=== PATIENT | female | born 1985 | race Caucasian/White ===

== ENCOUNTER 2016-10-17 07:42 | Emergency (ER) | payer MEDICARE, MEDICAID ==
[2016-10-17] MEDS: Sodium Chloride 0.9% 1,000 ML IV SCH ×3 (09:18→14:29)
--- NOTE | 2016-10-17 10:20 | EDM.PDOC ---
ED HPI GENERAL MEDICAL PROBLEM - General Chief Complaint: General Stated Complaint: lethargy Time Seen by Provider: 10/17/16 08:30 Source of Information: Reports: Patient, Family History Limitations: Reports: Altered mental status - History of Present Illness INITIAL COMMENTS - FREE TEXT/NARRATIVE: History of present illness: [31-year-old female presenting with altered mental status appear. Patient is positive for amphetamines, benzodiazepines, and marijuana. Patient has multiple prescriptions inclusive of tramadol for pain, effects or, and Seroquel. Patient does knowledge when questioned that in fact she was given some Reglan, some Valium, and some Clonopin from her friend. Patient also acknowledges she does go outside and smoke MJ in the car at the end of the day to take the edge off.] Review of systems: As per history of present illness and below otherwise all systems reviewed and negative. Past medical history: As per history of present illness and as reviewed below otherwise noncontributory. Surgical history: As per history of present illness and as reviewed below otherwise noncontributory. Social history: No reported history of drug or alcohol abuse. Family history: As per history of present illness and as reviewed below otherwise noncontributory. Physical exam: HEENT: Atraumatic, normocephalic, pupils reactive, negative for conjunctival pallor or scleral icterus, mucous membranes moist, throat clear, neck supple, nontender, trachea midline. Lungs: Clear to auscultation, breath sounds equal bilaterally, chest nontender. Heart: S1S2, regular, negative for clicks, rubs, or JVD. Abdomen: Soft, nondistended, nontender. Negative for masses or hepatosplenomegaly. Negative for costovertebral tenderness. Pelvis: Stable nontender. Genitourinary: Deferred. Rectal: Deferred. Extremities: Atraumatic, negative for cords or calf pain. Neurovascular unremarkable. Neuro: Lethargic but oriented. Cranial nerves II through XII unremarkable. Cerebellum unremarkable. Motor and sensory unremarkable throughout. Exam nonfocal. CPS called secondary to 3-week-old baby in the house. Father of child here with baby and taking appropriate care of child while in ER. CPS here to evaluate child and parents to determine status/placement. Renal profile noticed to be impacted secondary to dehydration and pyelonephritis. After rehydration patient noted to have repeat labs reflecting improvement on acute renal insufficiency. Diagnostics: [CBC, CMP, UA, urine drug screen, CT of the head] Therapeutics: [] Impression: [Positive drug screen/ amphetamine and benzo] Plan: [Multiple liters of fluid to rehydration] Definitive disposition and diagnosis as appropriate pending reevaluation and review of above. - Related Data Allergies Allergy/AdvReac Type Severity Reaction Status Date / Time ketorolac tromethamine Allergy Rash Verified 10/17/16 07:49 [From Toradol] Home Meds: Home Meds Gabapentin 1,200 mg PO TID 11/04/15 [History] Propranolol [Inderal LA] 10 mg PO TID 11/04/15 [History] QUEtiapine Fumarate [Seroquel] 200 mg PO BEDTIME 11/04/15 [History] Venlafaxine [Effexor] 150 mg PO DAILY 11/04/15 [History] traMADol [Ultram] 50 mg PO Q6H PRN 11/04/15 [History] Ciprofloxacin HCl [Cipro] 500 mg PO BID 10/17/16 [History] Past Medical History Cardiovascular History: Reports: Hypertension DEVELOPMENT REP History: Reports: , Other (see below) Other OB/BYN History: reports tubes are tied Musculoskeletal History: Reports: Arthritis, Back pain, chronic, Fracture Neurological History: Reports: Migraines Psychiatric History: Reports: Depression Endocrine/Metabolic History: Reports: Diabetes, gestational - Infectious Disease History Infectious Disease History: Reports: Hepatitis C - Past Surgical History GI Surgical History: Reports: Cholecystectomy Neurological Surgical History: Reports: Spinal fusion Social & Family History - Family History Family Medical History: Noncontributory - Tobacco Use Smoking Status *Q: Current Every Day Smoker Years of Tobacco use: 10 Packs/Tins Daily: 0.5 Month Tobacco Last Used: 2 months - Caffeine Use Caffeine Use: Reports: None - Recreational Drug Use Recreational Drug Use: No ED ROS GENERAL - Review of Systems Review Of Systems: See Below (See history of present illness) ED EXAM, GENERAL - Physical Exam Exam: See Below (See history of present illness) Course - Vital Signs Last Recorded V/S: Last Vital Signs Temp 36.8 C 10/17/16 15:15 Pulse 91 10/17/16 15:15 Resp 18 10/17/16 15:15 BP 114/64 10/17/16 15:15 Pulse Ox 95 10/17/16 15:15 - Orders/Labs/Meds Orders: Active Orders 24 hr Category Date Time Status Cardiac Monitoring [RC] . DIRECTED Care 10/17/16 09:21 Active Head wo Cont [CT] Stat Exams 10/17/16 09:39 Taken Lactated Ringers [Ringers, Lactated] 1,000 ml Med 10/17/16 14:45 Active IV .BOLUS Sodium Chloride 0.9% [Normal Saline] 1,000 ml Med 10/17/16 09:15 Active IV .BOLUS Medication Orders Sodium Chloride (Normal Saline) 1,000 mls @ 999 mls/hr IV .BOLUS PRABHAKAR Last Admin: 10/17/16 14:29 Dose: 999 mls/hr Infusion: 10/17/16 11:19 Dose: 999 mls/hr Admin: 10/17/16 10:18 Dose: 999 mls/hr Infusion: 10/17/16 10:18 Dose: 999 mls/hr Admin: 10/17/16 09:18 Dose: 999 mls/hr Lactated Ringer's (Ringers, Lactated) 1,000 mls @ 999 mls/hr IV .BOLUS ONE Stop: 10/17/16 15:45 Last Admin: 10/17/16 15:18 Dose: 999 mls/hr Labs: Laboratory Tests 10/17/16 10/17/16 10/17/16 Range/Units 07:58 07:58 07:58 WBC (5.0-10.0) 10^3/uL RBC (4.00-5.50) 10^6/uL Hgb (12.0-16.0) g/dL Hct (37.0-47.0) % MCV (82.0-94.0) fL MCH (27.0-32.0) pg MCHC (33.0-38.0) g/dL RDW Coeff of Dian (11.0-15.0) % Plt Count (150-400) 10^3/uL Neut % (Auto) (35-85) % Lymph % (Auto) (10-55) % [place] % (Auto) (0-16) % Eos % (Auto) (0-5) % Baso % (Auto) (0-3) % Neut # (1.80-7.00) 10^3/uL Lymph # (1.00-4.80) 10^3/uL [place] # (0.00-0.80) 10^3/uL Eos # (0.00-0.45) 10^3/uL Baso # 10^3/uL Sodium 141 (136-145) mEq/L Potassium 4.3 D (3.5-5.0) mEq/L Chloride 105 (98-106) mEq/L Carbon Dioxide 25 (21-32) mmol/L BUN 30 H D (7-18) mg/dL Creatinine 1.7 H D (0.6-1.0) mg/dL Est Cr Clr Drug Dosing 54.83 mL/min Estimated GFR (MDRD) 35 L (>=60) mL/min Glucose 98 (75-99) mg/dL Calcium 8.7 (8.4-10.1) mg/dL Total Bilirubin 0.5 (0.0-1.0) mg/dL AST 43 H (15-37) U/L ALT 104 H (12-78) U/L Alkaline Phosphatase 71 (46-116) U/L Total Protein 7.2 (6.4-8.2) g/dL Albumin 2.9 L (3.4-5.0) g/dL Urine Color Yellow (YELLOW) Urine Appearance Clear (CLEAR) Urine pH 5.0 (4.5-8.0) Ur Specific [place] 1.014 (1.003-1.020) Urine Protein 100 H (NEGATIVE) mg/dL Urine Glucose (UA) Negative (NEGATIVE) mg/dL Urine Ketones Negative (NEGATIVE) mg/dL Urine Occult Blood Moderate H (NEGATIVE) Urine Nitrite Negative (NEGATIVE) Urine Bilirubin Negative (NEGATIVE) Urine Urobilinogen 0.2 (0.2-1.0) EU/dL Ur Leukocyte Esterase Moderate H (NEGATIVE) Urine RBC 5-10 H (0-5) /HPF Urine WBC 50-75 H (0-5) /HPF Ur Squamous Epith Cells Few H (NOT SEEN) /HPF Urine Bacteria Moderate H (NOT SEEN) /HPF Hyaline Casts Few H (NOT SEEN) /LPF Urine Opiates Screen Negative (NEGATIVE) Ur Oxycodone Screen Negative (NEGATIVE) Urine Methadone Screen Negative (NEGATIVE) Ur Barbiturates Screen Negative (NEGATIVE) U Tricyclic Antidepress Positive H (NEGATIVE) Ur Phencyclidine Scrn Negative (NEGATIVE) Ur Amphetamine Screen Positive H (NEGATIVE) U Methamphetamines Scrn Negative (NEGATIVE) Urine MDMA Screen Negative (NEGATIVE) U Benzodiazepines Scrn Positive H (NEGATIVE) Urine Cocaine Screen Negative (NEGATIVE) U Marijuana (THC) Screen Positive H (NEGATIVE) 10/17/16 10/17/16 Range/Units 08:35 14:35 WBC 6.3 (5.0-10.0) 10^3/uL RBC 3.60 L (4.00-5.50) 10^6/uL Hgb 10.2 L (12.0-16.0) g/dL Hct 33.0 L (37.0-47.0) % MCV 91.7 (82.0-94.0) fL MCH 28.3 (27.0-32.0) pg MCHC 30.9 L (33.0-38.0) g/dL RDW Coeff of Dian 14.5 (11.0-15.0) % Plt Count 217 (150-400) 10^3/uL Neut % (Auto) 77.1 (35-85) % Lymph % (Auto) 14.5 (10-55) % [place] % (Auto) 6.4 (0-16) % Eos % (Auto) 1.8 (0-5) % Baso % (Auto) 0.2 (0-3) % Neut # 4.84 (1.80-7.00) 10^3/uL Lymph # 0.91 L (1.00-4.80) 10^3/uL [place] # 0.40 (0.00-0.80) 10^3/uL Eos # 0.11 (0.00-0.45) 10^3/uL Baso # 0.01 10^3/uL Sodium (136-145) mEq/L Potassium (3.5-5.0) mEq/L Chloride (98-106) mEq/L Carbon Dioxide (21-32) mmol/L BUN 20 H (7-18) mg/dL Creatinine 1.0 (0.6-1.0) mg/dL Est Cr Clr Drug Dosing 93.20 mL/min Estimated GFR (MDRD) > 60 (>=60) mL/min Glucose (75-99) mg/dL Calcium (8.4-10.1) mg/dL Total Bilirubin (0.0-1.0) mg/dL AST (15-37) U/L ALT (12-78) U/L Alkaline Phosphatase (46-116) U/L Total Protein (6.4-8.2) g/dL Albumin (3.4-5.0) g/dL Urine Color (YELLOW) Urine Appearance (CLEAR) Urine pH (4.5-8.0) Ur Specific [place] (1.003-1.020) Urine Protein (NEGATIVE) mg/dL Urine Glucose (UA) (NEGATIVE) mg/dL Urine Ketones (NEGATIVE) mg/dL Urine Occult Blood (NEGATIVE) Urine Nitrite (NEGATIVE) Urine Bilirubin (NEGATIVE) Urine Urobilinogen (0.2-1.0) EU/dL Ur Leukocyte Esterase (NEGATIVE) Urine RBC (0-5) /HPF Urine WBC (0-5) /HPF Ur Squamous Epith Cells (NOT SEEN) /HPF Urine Bacteria (NOT SEEN) /HPF Hyaline Casts (NOT SEEN) /LPF Urine Opiates Screen (NEGATIVE) Ur Oxycodone Screen (NEGATIVE) Urine Methadone Screen (NEGATIVE) Ur Barbiturates Screen (NEGATIVE) U Tricyclic Antidepress (NEGATIVE) Ur Phencyclidine Scrn (NEGATIVE) Ur Amphetamine Screen (NEGATIVE) U Methamphetamines Scrn (NEGATIVE) Urine MDMA Screen (NEGATIVE) U Benzodiazepines Scrn (NEGATIVE) Urine Cocaine Screen (NEGATIVE) U Marijuana (THC) Screen (NEGATIVE) Meds: Medications Generic Name Dose Route Start Last Admin Trade Name Freq PRN Reason Stop Dose Admin Sodium Chloride 1,000 mls @ 999 mls/hr 10/17/16 09:15 10/17/16 14:29 Normal Saline IV 999 mls/hr .BOLUS PRABHAKAR Administration Lactated Ringer's 1,000 mls @ 999 mls/hr 10/17/16 14:45 10/17/16 15:18 Ringers, Lactated IV 10/17/16 15:45 999 mls/hr .BOLUS ONE Administration Discontinued Medications Generic Name Dose Route Start Last Admin Trade Name Freq PRN Reason Stop Dose Admin Lactated Ringer's 1,000 mls @ 999 mls/hr 10/17/16 10:46 10/17/16 11:28 Ringers, Lactated IV 10/17/16 11:46 999 mls/hr .BOLUS ONE Administration Lactated Ringer's 1,000 mls @ 999 mls/hr 10/17/16 12:32 10/17/16 12:36 Ringers, Lactated IV 10/17/16 13:32 999 mls/hr .BOLUS ONE Administration Departure - Departure Time of Disposition: 15:24 Disposition: Home, Self-Care 01 Condition: good Clinical Impression: Altered mental status, unspecified Qualifiers: Altered mental status type: stupor Qualified Code(s): R40.1 - Stupor Forms: ED Department Discharge Additional Instructions: The following information is given to patients seen in the emergency department who are being discharged to home. This information is to outline your options for follow-up care. We provide all patients seen in our emergency department with a follow-up referral. The need for follow-up, as well as the timing and circumstances, are variable depending upon the specifics of your emergency department visit. If you don't have a primary care physician on staff, we will provide you with a referral. We always advise you to contact your personal physician following an emergency department visit to inform them of the circumstance of the visit and for follow-up with them and/or the need for any referrals to a consulting specialist. The emergency department will also refer you to a specialist when appropriate. This referral assures that you have the opportunity for follow-up care with a specialist. All of these measure are taken in an effort to provide you with optimal care, which includes your follow-up. Under all circumstances we always encourage you to contact your private physician who remains a resource for coordinating your care. When calling for follow-up care, please make the office aware that this follow-up is from your recent emergency room visit. If for any reason you are refused follow-up, please contact the [facility] Emergency Department at and asked to speak to the emergency department charge nurse. Followup with primary care provider in one to 2 days Finish your antibiotics as directed Quit taking drugs return ED as needed as this got - My Orders Last 24 Hours: My Active Orders 10/17/16 09:15 Sodium Chloride 0.9% [Normal Saline] 1,000 ml IV .BOLUS 10/17/16 09:21 Cardiac Monitoring [RC] . DIRECTED 10/17/16 09:39 Head wo Cont [CT] Stat 10/17/16 14:45 Lactated Ringers [Ringers, Lactated] 1,000 ml IV .BOLUS - Assessment/Plan Last 24 Hours: My Active Orders 10/17/16 09:15 Sodium Chloride 0.9% [Normal Saline] 1,000 ml IV .BOLUS 10/17/16 09:21 Cardiac Monitoring [RC] . DIRECTED 10/17/16 09:39 Head wo Cont [CT] Stat 10/17/16 14:45 Lactated Ringers [Ringers, Lactated] 1,000 ml IV .BOLUS
[2016-10-17] MEDS ORDERED: Lactated Ringers 1,000 ML IV ONE ×3 (10:46→14:45)
[2016-10-17 15:15] VITALS: BP 114/64
== END 2016-10-17 17:00 | disposition home or self-care (01) ==
LOC: CC.ED 07:42
DX: R40.1 Stupor (principal); M19.90 Unspecified osteoarthritis, unspecified site; F17.210 Nicotine dependence, cigarettes, uncomplicated; Z88.5 Allergy status to narcotic agent; Z79.899 Other long term (current) drug therapy
CPT/HCPCS: 36415; 70450; 80053; 80305; 81001; 82565; 84520; 85025; 96360; 96361; 99285; J7030; J7120

== ENCOUNTER 2017-08-05 17:04 | Emergency (ER) | payer MEDICARE, MEDICAID ==
[2017-08-05 17:16] VITALS: BP 106/84
--- NOTE | 2017-08-05 17:55 | EDM.PDOC ---
ED HPI GENERAL MEDICAL PROBLEM - General Chief Complaint: Chest Pain Stated Complaint: CHEST PAINS FOR A MONTH Time Seen by Provider: 08/05/17 17:35 Source of Information: Reports: Patient History Limitations: Reports: No Limitations - History of Present Illness INITIAL COMMENTS - FREE TEXT/NARRATIVE: johnny is a 32 yo female who presents to the ER with complaints of chest tightness for the last month or so. States it initially started where she would get it once or twice a day and has gradually gotten worse. Admits now she will get the tightness and feels panicky at [place] 4X a day for the last couple of weeks. She states she has a history of depression and anxiety and usually sees Dr. Chavez in [place]. She admits she has cancelled two appointments d/t her current symptoms as she thought it would gradually get better. States she has a lot going on at home right now and is under a lot of stress to. She takes Seroquel and Effexor for her depression. She states she would like to make sure everything is okay and hopefully this will give her some relief. Denies any pain presently and states it will come on at any given time. Chest tightness is always on the left and into her left shoulder. Also feels some tingling in her fingers. Onset: Gradual Location: Reports: Chest Improves with: Reports: Other (calming down) Worsens with: Reports: Other (stress, anxiety) Associated Symptoms: Reports: No Other Symptoms Anterior Chest Pain Score (Numeric/FACES): 4 - Related Data Allergies Allergy/AdvReac Type Severity Reaction Status Date / Time ketorolac tromethamine Allergy Rash Verified 10/17/16 07:49 [From Toradol] Home Meds: Home Meds Gabapentin 1,200 mg PO TID 11/04/15 [History] QUEtiapine Fumarate [Seroquel] 200 mg PO BEDTIME 11/04/15 [History] Venlafaxine [Effexor] 150 mg PO DAILY 11/04/15 [History] Past Medical History HEENT History: Reports: Impaired Vision Cardiovascular History: Reports: Hypertension Gastrointestinal History: Reports: Hepatitis [employer]ED [employer] History: Reports: , Other (See Below) Other OB/BYN History: reports tubes are tied Musculoskeletal History: Reports: Arthritis, Back Pain, Chronic, Fracture Neurological History: Reports: Migraines Psychiatric History: Reports: Depression Endocrine/Metabolic History: Reports: Diabetes, Gestational - Infectious Disease History Infectious Disease History: Reports: Hepatitis C - Past Surgical History GI Surgical History: Reports: Cholecystectomy Neurological Surgical History: Reports: Spinal Fusion Social & Family History - Family History Family Medical History: Noncontributory - Tobacco Use Smoking Status *Q: Current Every Day Smoker Years of Tobacco use: 12 Packs/Tins Daily: 0.5 Month Tobacco Last Used: 2 months - Caffeine Use Caffeine Use: Reports: None - Recreational Drug Use Recreational Drug Use: No ED ROS GENERAL - Review of Systems Review Of Systems: See Below Constitutional: Reports: No Symptoms HEENT: Reports: No Symptoms Respiratory: Reports: No Symptoms Cardiovascular: Reports: Chest Pain, Palpitations GI/Abdominal: Reports: No Symptoms : Reports: No Symptoms Skin: Reports: No Symptoms Psychiatric: Reports: Anxiety, Depression ED EXAM, GENERAL - Physical Exam Exam: See Below Exam Limited By: No Limitations General Appearance: Alert, No Apparent Distress, Other (appears calm, sitting comfortably on examination bed) Eye Exam: Bilateral Eye: Normal Inspection Ears: Normal External Exam, Normal Canal, Hearing Grossly Normal, Normal TMs Nose: Normal Inspection, No Blood Throat/Mouth: Normal Inspection, Normal Teeth, Normal Gums, Normal Oropharynx, Normal Voice, No Airway Compromise Head: Atraumatic, Normocephalic Neck: Normal Inspection, Supple, Non-Tender Respiratory/Chest: No Respiratory Distress, Lungs Clear, Normal Breath Sounds, No Accessory Muscle Use Cardiovascular: Normal Peripheral Pulses, Regular Rate, Rhythm, No Edema, No Murmur Extremities: Normal Inspection, Normal Capillary Refill Neurological: Alert, Oriented, Normal Cognition, No Motor/Sensory Deficits Psychiatric: Normal Affect, Normal Mood Skin Exam: Warm, Dry, Intact, Normal Color, No Rash EKG INTERPRETATION EKG Date: 08/05/17 Rhythm: NSR Course - Vital Signs Last Recorded V/S: Last Vital Signs Temp 97.2 F 08/05/17 17:32 Pulse 99 08/05/17 17:32 Resp 20 08/05/17 17:32 BP 106/84 08/05/17 17:32 Pulse Ox 99 08/05/17 17:32 - Orders/Labs/Meds Orders: Active Orders 24 hr Category Date Time Status Chest 2V [CR] Stat Exams 12/27/17 17:23 Taken LORazepam [Take Home: LORazepam 0.5 MG, 2 Tab Pack] Med 08/05/17 18:01 Once 2 packet PO ONETIME ONE Medication Orders Lorazepam (Take Home: Lorazepam 0.5 Mg, 2 Tab Pack) 2 packet PO ONETIME ONE Stop: 08/05/17 18:02 Labs: Laboratory Tests 08/05/17 08/05/17 08/05/17 Range/Units 17:34 17:34 17:34 WBC 6.4 (5.0-10.0) 10^3/uL RBC 4.22 (4.00-5.50) 10^6/uL Hgb 12.6 (12.0-16.0) g/dL Hct 37.5 (37.0-47.0) % MCV 88.9 (82.0-94.0) fL MCH 29.9 (27.0-32.0) pg MCHC 33.6 (33.0-38.0) g/dL RDW Coeff of Dian 12.2 (11.0-15.0) % Plt Count 361 (150-400) 10^3/uL Neut % (Auto) 57.5 (35-85) % Lymph % (Auto) 32.2 (10-55) % [place] % (Auto) 7.8 (0-16) % Eos % (Auto) 2.0 (0-5) % Baso % (Auto) 0.5 (0-3) % Neut # (Auto) 3.69 (1.80-7.00) 10^3/uL Lymph # (Auto) 2.07 (1.00-4.80) 10^3/uL [place] # (Auto) 0.50 (0.00-0.80) 10^3/uL Eos # (Auto) 0.13 (0.00-0.45) 10^3/uL Baso # (Auto) 0.03 10^3/uL PT 9.9 (9.7-12.3) SEC INR 0.92 (0.92-1.18) APTT 24.5 (20.0-45.0) SEC Sodium 140 (136-145) mEq/L Potassium 4.4 (3.5-5.0) mEq/L Chloride 105 (98-106) mEq/L Carbon Dioxide 26 (21-32) mmol/L BUN 9 D (7-18) mg/dL Creatinine 0.7 (0.6-1.0) mg/dL Est Cr Clr Drug Dosing 127.76 mL/min Estimated GFR (MDRD) > 60 (>=60) mL/min Glucose 92 (75-99) mg/dL Calcium 8.4 (8.4-10.1) mg/dL Lactate Dehydrogenase 209 H (100-190) U/L Creatine Kinase 71 (21-215) U/L Troponin I < 0.017 (0.00-0.06) ng/mL Meds: Medications Generic Name Dose Route Start Last Admin Trade Name Nando PRN Reason Stop Dose Admin Lorazepam 2 packet 08/05/17 18:01 Take Home: Lorazepam 0.5 Mg, 2 Tab Pack PO 08/05/17 18:02 ONETIME ONE Departure - Departure Time of Disposition: 18:04 Disposition: Home, Self-Care 01 Condition: Good Clinical Impression: Anxiety attack Instructions: Panic Attacks, [id number], Nonspecific Chest Pain, [id number] Forms: ED Department Discharge Additional Instructions: 1) Schedule appointment with primary provider tomorrow. 2) Advise smoking cessation, which can cause worsening of current symptoms 3) Encourage counseling as well, recommend getting referral from primary provider 4) Try to relax, work on breathing technique. 5) Refrain from any alcohol use or stimulants. 6) Ativan 0.5mg - 4 tablets in total given and may only take 1 tablet a day as needed for panic attack. Advise refraining from driving during this time as well. Further medications need to be discussed with your primary 7) If symptoms worsen or any concerns, return to ER. - Problem List & Annotations (1) Anxiety attack SNOMED Code(s): 923765384 Code(s): F41.0 - PANIC DISORDER [EPISODIC PAROXYSMAL ANXIETY] Status: Acute - Problem List Review Problem List Initiated/Reviewed/Updated: Yes - My Orders Last 24 Hours: My Active Orders 08/05/17 17:23 Chest 2V [CR] Stat 08/05/17 18:01 LORazepam [Take Home: LORazepam 0.5 MG, 2 Tab Pack] 2 packet PO ONETIME ONE - Assessment/Plan Last 24 Hours: My Active Orders 08/05/17 17:23 Chest 2V [CR] Stat 08/05/17 18:01 LORazepam [Take Home: LORazepam 0.5 MG, 2 Tab Pack] 2 packet PO ONETIME ONE Plan: See additional instructions. Labs, EKG and chest x-ray showed no acute or concerning findings.
[2017-08-05 17:56] LABS: CHLORIDE,CL 105 mEq/L (98-106); SODIUM,NA 140 mEq/L (136-145)
[2017-08-05] MEDS ORDERED: Take Home: LORazepam 0.5 MG Tab, 2 Tab Pack PO ONE (18:01)
== END 2017-08-05 18:16 | disposition home or self-care (01) ==
LOC: CC.ED 17:04
DX: F41.9 Anxiety disorder, unspecified (principal); F17.210 Nicotine dependence, cigarettes, uncomplicated; F32.9 Major depressive disorder, single episode, unspecified; Z88.8 Allergy status to other drugs, medicaments and biological substances
CPT/HCPCS: 36415; 71020; 80048; 82550; 83615; 84484; 85025; 85610; 85730; 93005; 99285; A9270; 93010; 99284

== ENCOUNTER 2017-12-01 19:08 | Emergency (ER) | payer MEDICARE, MEDICAID ==
[2017-12-01 19:18] VITALS: BP 131/94
[2017-12-01] MEDS ORDERED: Naproxen 500 MG Tab PO ONE (19:36)
--- NOTE | 2017-12-01 19:54 | EDM.PDOC ---
ED HPI GENERAL MEDICAL PROBLEM - General Chief Complaint: Lower Extremity Injury/Pain Stated Complaint: right foot/ankle pain Time Seen by Provider: 12/01/17 19:30 - History of Present Illness INITIAL COMMENTS - FREE TEXT/NARRATIVE: Arabella is a 32 year old female who presents to the ED with c/o right ankle/foot pain. She reports she was walking earlier today, not paying attention, when she rolled her ankle off the curb of the sidewalk. She reports instant pain and has now noticed some swelling to the top portion of her foot. She rates the pain an 8/10. 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 She is able to walk on ankle, with pain. She is able to move ankle and wiggle toes. She reports she has tried taking Tylenol and Excedrin migraine, but has not had relief of pain. Onset: Today, Sudden Duration: Constant Location: Reports: Lower Extremity, Right Quality: Reports: Ache, Throbbing Severity: Severe Improves with: Reports: Medication Worsens with: Reports: Movement Context: Reports: Activity Associated Symptoms: Reports: No Other Symptoms. Denies: Confusion, Chest Pain , Cough, cough w sputum, Diaphoresis, Fever/Chills, Headaches, Loss of Appetite , Malaise, Nausea/Vomiting, Rash, Seizure, Shortness of Breath, Syncope, Weakness Treatments PROMOTIONS EXECUTIVE: Reports: Acetaminophen, Other Medication(s) (Excedrin) Right Ankle Pain Score (Numeric/FACES): 8 - Related Data Allergies Allergy/AdvReac Type Severity Reaction Status Date / Time ketorolac tromethamine Allergy Rash Verified 12/01/17 19:10 [From Toradol] Home Meds: Home Meds Gabapentin 1,200 mg PO TID 11/04/15 [History] QUEtiapine Fumarate [Seroquel] 300 mg PO BEDTIME 11/04/15 [History] Venlafaxine [Effexor] 150 mg PO DAILY 11/04/15 [History] Past Medical History HEENT History: Reports: Impaired Vision Cardiovascular History: Reports: Hypertension Gastrointestinal History: Reports: Hepatitis TACKER OFF History: Reports: , Other (See Below) Other OB/BYN History: reports tubes are tied Musculoskeletal History: Reports: Arthritis, Back Pain, Chronic, Fracture Neurological History: Reports: Migraines Psychiatric History: Reports: Depression Endocrine/Metabolic History: Reports: Diabetes, Gestational - Infectious Disease History Infectious Disease History: Reports: Hepatitis C - Past Surgical History GI Surgical History: Reports: Cholecystectomy Neurological Surgical History: Reports: Spinal Fusion Social & Family History - Family History Family Medical History: Noncontributory - Tobacco Use Smoking Status *Q: Current Every Day Smoker Years of Tobacco use: 15 Packs/Tins Daily: 0.5 Month/Year Tobacco Last Used: 2 months - Caffeine Use Caffeine Use: Reports: None - Recreational Drug Use Recreational Drug Use: No Review of Systems - Review of Systems Review Of Systems: ROS reveals no pertinent complaints other than HPI. ED EXAM, GENERAL - Physical Exam Exam: See Below Exam Limited By: No Limitations General Appearance: Alert, WD/WN, No Apparent Distress Peripheral Pulses: 2+: Posterior Tibial (R), Dorsalis Pedis (R) Extremities: Normal Capillary Refill, Limited Range of Motion (right ankle), Other (tenderness over top of foot, trace swelling to anterior foot). No: Increased Warmth, Redness Skin Exam: Warm, Dry, Intact, Normal Color, No Rash Course - Vital Signs Last Recorded V/S: Last Vital Signs Temp 98.7 F 12/01/17 19:10 Pulse 87 12/01/17 19:10 Resp 20 12/01/17 19:10 BP 131/94 H 12/01/17 19:10 Pulse Ox 98 12/01/17 19:10 - Orders/Labs/Meds Orders: Active Orders 24 hr Category Date Time Status Ankle Min 3V Rt [CR] Stat Exams 12/01/17 19:10 Taken Foot 2V Rt [CR] Stat Exams 12/01/17 19:10 Taken Meds: Medications Discontinued Medications Generic Name Dose Route Start Last Admin Trade Name Freq PRN Reason Stop Dose Admin Naproxen 500 mg 12/01/17 19:36 12/01/17 19:44 Naprosyn PO 12/01/17 19:37 500 mg ONETIME ONE Administration Naproxen 2 packet 12/01/17 21:01 12/01/17 21:10 Take Home: Naproxen 500 Mg, 4 Tab Pack PO 12/01/17 21:02 2 packet ONETIME ONE Administration - Re-Assessments/Exams Free Text/Narrative Re-Assessment/Exam: 12/01/17 20:59 Xrays normal per radiology report. Departure - Departure Time of Disposition: 20:59 Disposition: Home, Self-Care 01 Condition: Good Clinical Impression: Right ankle sprain Qualifiers: Encounter type: initial encounter Involved ligament of ankle: unspecified ligament Qualified Code(s): S93.401A - Sprain of unspecified ligament of right ankle, initial encounter - Discharge Information Instructions: Ankle Sprain, [id number] Referrals: PCP,None [Primary Care Provider] - Forms: ED Department Discharge Additional Instructions: Rest affected foot/ankle until pain improves Ice right ankle for 20 minutes at a time Ronny wrap applied. Wear as needed for comfort Elevate extremity as much as possible Naproxen every 8 hours as needed for pain Follow up with PCP if symptoms worsen or do not improve in 7 days - My Orders Last 24 Hours: My Active Orders 12/01/17 19:10 Ankle Min 3V Rt [CR] Stat Foot 2V Rt [CR] Stat - Assessment/Plan Last 24 Hours: My Active Orders 12/01/17 19:10 Ankle Min 3V Rt [CR] Stat Foot 2V Rt [CR] Stat
[2017-12-01] MEDS ORDERED: Take Home: Naproxen 500 MG Tab, 4 Tab Pack PO ONE (21:01)
== END 2017-12-01 21:14 | disposition home or self-care (01) ==
LOC: CC.ED 19:08
DX: S93.401A Sprain of unspecified ligament of right ankle, initial encounter (principal); I10 Essential (primary) hypertension; F17.210 Nicotine dependence, cigarettes, uncomplicated; Z88.6 Allergy status to analgesic agent; Z79.899 Other long term (current) drug therapy; X50.9XXA Other and unspecified overexertion or strenuous movements or postures, initial encounter; Y93.01 Activity, walking, marching and hiking
CPT/HCPCS: 73610; 73620; 99283; A9270

== ENCOUNTER 2018-07-20 21:10 | Emergency (ER) | payer MEDICARE, MEDICAID ==
[2018-07-20 22:12] LABS: CHLORIDE,CL 102 mEq/L (98-106); SODIUM,NA 138 mEq/L (136-145)
[2018-07-20 22:34] VITALS: BP 126/91
[2018-07-20] MEDS ORDERED: Potassium Chloride 10 MEQ Tab.ER PO ONE (22:41)
--- NOTE | 2018-07-20 22:49 | EDM.PDOC ---
ED HPI GENERAL MEDICAL PROBLEM - General Chief Complaint: Neuro Symptoms/Deficits Stated Complaint: dizzy, lightheaded Time Seen by Provider: 07/20/18 21:42 Source of Information: Reports: Patient History Limitations: Reports: No Limitations - History of Present Illness INITIAL COMMENTS - FREE TEXT/NARRATIVE: Arabella is a 33 yo female who presents to the ED via [facility] with complaints of lightheadedness. She states she has felt dizzy the last few days and tonight it seemed to get worse. Admits she felt as if she was going to pass out. She states her blood pressure has been quite high lately with the bottom number being around the 100 up to 117 range. She admits she has been getting a lot of headaches, especially in the morning. She states she has been dealing with a lot of stress lately and feels her anxiety has been worse as well from it. She denies any chest pain or palpitations in her chest. States she hasn't had any upper respiratory symptoms either. Admits she is just getting over her period and was abnormal this month as she only had it for a few days and was a lot juvenile justice officer than it typically is. states she felt similar to this about a year ago when she had a retained tampon. She admits she doesn't use a tampon very often so will sometimes forget about it. Last time it happened she admits just under a month she was having a bowel movement and could tell there was one there and pulled it out herself. She would like to make sure no tampon is present. She denies any foul odors. Did notice with last intercourse some mild discomfort. Denies any urinary symptoms. States when she arrived at the ED it seems as if her symptoms completely resolved. She denies any lightheadedness currently. Uterine Pain Score (Numeric/FACES): 3 - Related Data Allergies Allergy/AdvReac Type Severity Reaction Status Date / Time ketorolac tromethamine Allergy Rash Verified 07/20/18 21:16 [From Toradol] Home Meds: Home Meds Gabapentin 1,200 mg PO TID 11/04/15 [History] QUEtiapine Fumarate [Seroquel] 300 mg PO BEDTIME 11/04/15 [History] Venlafaxine [Effexor] 225 mg PO DAILY 11/04/15 [History] HYDROcodone/Ibuprofen [Hydrocodone-Ibuprofen 7.5-200] 2 tab PO QID PRN 07/20/18 [History] Past Medical History HEENT History: Reports: Impaired Vision Cardiovascular History: Reports: Hypertension Gastrointestinal History: Reports: GERD, Hepatitis Genitourinary History: Reports: Pyelonephritis DIRECTOR OF RELIGIOUS LIFE History: Reports: , Other (See Below) Other DIRECTOR OF RELIGIOUS LIFE History: reports tubes are tied Musculoskeletal History: Reports: Arthritis, Back Pain, Chronic, Fracture, Fibromyalgia Neurological History: Reports: Migraines Psychiatric History: Reports: Anxiety, Depression Endocrine/Metabolic History: Reports: Diabetes, Gestational - Infectious Disease History Infectious Disease History: Reports: Hepatitis C - Past Surgical History HEENT Surgical History: Reports: None Cardiovascular Surgical History: Reports: None GI Surgical History: Reports: Cholecystectomy Female Surgical History: Reports: None Endocrine Surgical History: Reports: None Neurological Surgical History: Reports: Spinal Fusion Musculoskeletal Surgical History: Reports: None Dermatological Surgical History: Reports: None Social & Family History - Family History Family Medical History: Noncontributory - Tobacco Use Smoking Status *Q: Current Every Day Smoker Years of Tobacco use: 12 Packs/Tins Daily: 0.5 - Caffeine Use Caffeine Use: Reports: Soda - Recreational Drug Use Recreational Drug Use: No ED ROS GENERAL - Review of Systems Review Of Systems: ROS reveals no pertinent complaints other than HPI. Constitutional: Reports: No Symptoms HEENT: Reports: No Symptoms Respiratory: Denies: Shortness of Breath, Wheezing Cardiovascular: Reports: Blood Pressure Problem, Lightheadedness. Denies: Chest Pain, Palpitations GI/Abdominal: Denies: Abdominal Pain, Bloody Stool, Constipation, Diarrhea, Nausea, Vomiting : Reports: Irregular Menses. Denies: Discharge, Dysuria, Hematuria, Pain, Urgency Musculoskeletal: Reports: No Symptoms Skin: Reports: No Symptoms Neurological: Reports: Dizziness, Headache Psychiatric: Reports: Anxiety, Depression ED EXAM, NEURO - Physical Exam Exam: See Below Exam Limited By: No Limitations General Appearance: Alert, WD/WN, No Apparent Distress Eye Exam: Bilateral Eye: EOMI, Normal Inspection, PERRL Ears: Normal External Exam, Normal Canal, Hearing Grossly Normal, Normal TMs Nose: Normal Inspection, Normal Mucosa, No Blood Throat/Mouth: Normal Inspection, Normal Lips, Normal Teeth, Normal Gums, Normal Oropharynx, Normal Voice, No Airway Compromise Head Exam: Atraumatic, Normocephalic Neck: Normal Inspection, Supple Respiratory/Chest: No Respiratory Distress, Lungs Clear, Normal Breath Sounds, No Accessory Muscle Use Cardiovascular: Normal Peripheral Pulses, Regular Rate, Rhythm, No Edema, No Murmur GI/Abdominal: Normal Bowel Sounds, Soft, No Organomegaly, No Distention, Tender (mild suprapubic tenderness) (Female) Exam: Normal Speculum Exam. No: Cervical Discharge, Cervical Lesions, Cervix Motion Tenderness, Vaginal Bleeding, Vaginal Discharge, Vaginal Lesions Neurological: Alert, Normal Mood/Affect, CN II-XII Intact, Normal Gait, No Motor /Sensory Deficits, Oriented x 3 Extremities: Normal Inspection Psychiatric: Normal Affect, Normal Mood Skin Exam: Warm, Dry, Intact, Normal Color, No Rash EKG INTERPRETATION EKG Date: 07/20/18 Rhythm: NSR Roland: Normal P-Wave: Present QRS: Normal ST-T: Normal QT: Prolonged Comparison: NA - No Prior EKG Course - Vital Signs Last Recorded V/S: Last Vital Signs Temp 96.7 F 07/20/18 21:34 Pulse 79 07/20/18 21:34 Resp 16 07/20/18 21:34 BP 126/91 H 07/20/18 22:33 Pulse Ox 99 07/20/18 21:34 Orthostatic Blood Pressure [ 113/71 Standing] Orthostatic Blood Pressure [ 120/86 Sitting] Orthostatic Blood Pressure [ 119/85 Supine] - Orders/Labs/Meds Orders: Active Orders 24 hr Category Date Time Status EKG Documentation Completion [RC] STAT Care 07/20/18 22:11 Active Labs: Laboratory Tests 07/20/18 07/20/18 07/20/18 Range/Units 21:24 21:24 21:24 WBC 5.8 (5.0-10.0) 10^3/uL RBC 3.97 L (4.00-5.50) 10^6/uL Hgb 11.6 L (12.0-16.0) g/dL Hct 35.0 L (37.0-47.0) % MCV 88.2 (82.0-94.0) fL MCH 29.2 (27.0-32.0) pg MCHC 33.1 (33.0-38.0) g/dL RDW Coeff of Dian 12.8 (11.0-15.0) % Plt Count 274 (150-400) 10^3/uL Neut % (Auto) 62.5 (35-85) % Lymph % (Auto) 29.3 (10-55) % Cameron % (Auto) 6.0 (0-16) % Eos % (Auto) 1.9 (0-5) % Baso % (Auto) 0.3 (0-3) % Neut # (Auto) 3.64 (1.80-7.00) 10^3/uL Lymph # (Auto) 1.71 (1.00-4.80) 10^3/uL Cameron # (Auto) 0.35 (0.00-0.80) 10^3/uL Eos # (Auto) 0.11 (0.00-0.45) 10^3/uL Baso # (Auto) 0.02 10^3/uL PT 10.0 (9.7-12.3) SEC INR 0.96 (0.92-1.18) APTT 24.5 (23.2-32.3) SEC Sodium 138 (136-145) mEq/L Potassium 3.0 L D (3.5-5.0) mEq/L Chloride 102 (98-106) mEq/L Carbon Dioxide 24 (21-32) mmol/L BUN 7 (7-18) mg/dL Creatinine 0.8 (0.6-1.0) mg/dL Est Cr Clr Drug Dosing 114.35 mL/min Estimated GFR (MDRD) > 60 (>=60) mL/min Glucose 101 H (75-99) mg/dL Calcium 8.1 L (8.4-10.1) mg/dL Total Bilirubin 0.3 (0.0-1.0) mg/dL AST 68 H (15-37) U/L ALT 173 H (12-78) U/L Alkaline Phosphatase 67 (46-116) U/L Lactate Dehydrogenase 182 (100-190) U/L Creatine Kinase 52 (21-215) U/L Troponin I < 0.017 (0.00-0.06) ng/mL Total Protein 6.9 (6.4-8.2) g/dL Albumin 3.2 L (3.4-5.0) g/dL Urine Color (YELLOW) Urine Appearance (CLEAR) Urine pH (4.5-8.0) Ur Specific [place] (1.003-1.020) Urine Protein (NEGATIVE) mg/dL Urine Glucose (UA) (NEGATIVE) mg/dL Urine Ketones (NEGATIVE) mg/dL Urine Occult Blood (NEGATIVE) Urine Nitrite (NEGATIVE) Urine Bilirubin (NEGATIVE) Urine Urobilinogen (0.2-1.0) EU/dL Ur Leukocyte Esterase (NEGATIVE) Urine RBC (0-5) /HPF Urine WBC (0-5) /HPF 07/20/18 Range/Units 22:01 WBC (5.0-10.0) 10^3/uL RBC (4.00-5.50) 10^6/uL Hgb (12.0-16.0) g/dL Hct (37.0-47.0) % MCV (82.0-94.0) fL MCH (27.0-32.0) pg MCHC (33.0-38.0) g/dL RDW Coeff of Dian (11.0-15.0) % Plt Count (150-400) 10^3/uL Neut % (Auto) (35-85) % Lymph % (Auto) (10-55) % Cameron % (Auto) (0-16) % Eos % (Auto) (0-5) % Baso % (Auto) (0-3) % Neut # (Auto) (1.80-7.00) 10^3/uL Lymph # (Auto) (1.00-4.80) 10^3/uL Cameron # (Auto) (0.00-0.80) 10^3/uL Eos # (Auto) (0.00-0.45) 10^3/uL Baso # (Auto) 10^3/uL PT (9.7-12.3) SEC INR (0.92-1.18) APTT (23.2-32.3) SEC Sodium (136-145) mEq/L Potassium (3.5-5.0) mEq/L Chloride (98-106) mEq/L Carbon Dioxide (21-32) mmol/L BUN (7-18) mg/dL Creatinine (0.6-1.0) mg/dL Est Cr Clr Drug Dosing mL/min Estimated GFR (MDRD) (>=60) mL/min Glucose (75-99) mg/dL Calcium (8.4-10.1) mg/dL Total Bilirubin (0.0-1.0) mg/dL AST (15-37) U/L ALT (12-78) U/L Alkaline Phosphatase (46-116) U/L Lactate Dehydrogenase (100-190) U/L Creatine Kinase (21-215) U/L Troponin I (0.00-0.06) ng/mL Total Protein (6.4-8.2) g/dL Albumin (3.4-5.0) g/dL Urine Color Yellow (YELLOW) Urine Appearance Clear (CLEAR) Urine pH 6.0 (4.5-8.0) Ur Specific [place] >= 1.030 H (1.003-1.020) Urine Protein Trace H (NEGATIVE) mg/dL Urine Glucose (UA) Negative (NEGATIVE) mg/dL Urine Ketones 40 H (NEGATIVE) mg/dL Urine Occult Blood Negative (NEGATIVE) Urine Nitrite Negative (NEGATIVE) Urine Bilirubin Negative (NEGATIVE) Urine Urobilinogen 0.2 (0.2-1.0) EU/dL Ur Leukocyte Esterase Negative (NEGATIVE) Urine RBC Not seen (0-5) /HPF Urine WBC Not seen (0-5) /HPF Meds: Medications Discontinued Medications Generic Name Dose Route Start Last Admin Trade Name Alexanderq PRN Reason Stop Dose Admin Potassium Chloride 20 meq 07/20/18 22:41 Klor-Con 10 PO 07/20/18 22:42 NOW ONE Departure - Departure Time of Disposition: 22:53 Disposition: Home, Self-Care 01 Clinical Impression: Hypokalemia, Lightheadedness - Discharge Information Instructions: Potassium Content of Foods, Syncope, [id number], Dizziness, [id number] Referrals: PCP,Not In Area [Primary Care Provider] - Additional Instructions: 1) Potassium chloride 20 mEq given tonight in ED 2) Recommend increasing potassium supplementation 3) Script given for Potassium 10 mEq daily 4) Encourage increasing fluid intake, as discussed. 5) Advise if symptoms return, any new onset of symptoms, palpitations, etc.. recommend returning for reevaluation. 6) Encourage following up with primary within the next week for recheck blood pressure, potassium level - Problem List & Annotations (1) Hypokalemia SNOMED Code(s): 64080742 Code(s): E87.6 - HYPOKALEMIA Status: Acute Current Visit: Yes (2) Lightheadedness SNOMED Code(s): 201423983 Code(s): R42 - DIZZINESS AND GIDDINESS Status: Acute Current Visit: Yes - My Orders Last 24 Hours: My Active Orders 07/20/18 22:11 EKG Documentation Completion [RC] STAT - Assessment/Plan Last 24 Hours: My Active Orders 07/20/18 22:11 EKG Documentation Completion [RC] STAT Plan: Arabella has been doing well in ED. Discussed laboratory findings. LFT's have been slightly elevated d/t known Hepatitis C. Potassium level was 3.0. Arabella denies any further symptoms. Discussed IV potassium vs oral and she would like to take oral supplements. States she is feeling well. Will discharge home with prescription and with her understanding she needs to see her primary this week. If symptoms would return or any concerns at all, recommend returning to ED.
== END 2018-07-20 23:09 | disposition home or self-care (01) ==
LOC: CC.ED 21:10
DX: E87.6 Hypokalemia (principal); R42 Dizziness and giddiness; I10 Essential (primary) hypertension; K21.9 Gastro-esophageal reflux disease without esophagitis; F41.9 Anxiety disorder, unspecified; F32.9 Major depressive disorder, single episode, unspecified; F17.210 Nicotine dependence, cigarettes, uncomplicated; Z88.8 Allergy status to other drugs, medicaments and biological substances; Z79.899 Other long term (current) drug therapy
CPT/HCPCS: 36415; 80053; 81001; 82550; 83615; 84484; 85025; 85610; 85730; 87070; 93005; 99284; A9270; 93010

== ENCOUNTER 2018-10-20 01:39 | Emergency (ER) | payer MEDICARE, MEDICAID ==
--- NOTE | 2018-10-20 02:32 | EDM.PDOC ---
ED HPI GENERAL MEDICAL PROBLEM - General Chief Complaint: General Stated Complaint: panic attack Time Seen by Provider: 10/20/18 02:19 Source of Information: Reports: Patient History Limitations: Reports: No Limitations - History of Present Illness INITIAL COMMENTS - FREE TEXT/NARRATIVE: Patient presents to ER with complaints of midsternal chest pain. EMS was called to home for same. On their arrival, patient uncooperative. Would not allow EMS to administer much for cares. Would not answer questions. In ER, staff was able to do EKG which shows sinus tachycardia. Blood pressure elevated. Patient admits that chest pain much improved, now dull ache in chest. Relates has known panic attacks. Pain started about 4 hours ago. Denies feeling short of breath, nauseated, or diaphoretic. Did smoke meth earlier in the day. Alert and cooperative on my arrival. Onset: Today Duration: Hour(s): Location: Reports: Chest Quality: Reports: Ache, Dull Severity: Mild Improves with: Reports: None Worsens with: Reports: None Associated Symptoms: Reports: Chest Pain. Denies: Confusion, Cough, Fever/ Chills, Loss of Appetite, Nausea/Vomiting, Shortness of Breath, Syncope - Related Data Allergies Allergy/AdvReac Type Severity Reaction Status Date / Time ketorolac tromethamine Allergy Rash Verified 10/20/18 01:50 [From Toradol] Home Meds: Home Meds Gabapentin 1,200 mg PO TID 11/04/15 [History] QUEtiapine Fumarate [Seroquel] 300 mg PO BEDTIME 11/04/15 [History] Venlafaxine [Effexor] 225 mg PO DAILY 11/04/15 [History] HYDROcodone/Ibuprofen [Hydrocodone-Ibuprofen 7.5-200] 2 tab PO QID PRN 07/20/18 [History] Potassium Chloride 10 meq PO DAILY 10/20/18 [History] Past Medical History HEENT History: Reports: Impaired Vision Cardiovascular History: Reports: Hypertension Gastrointestinal History: Reports: GERD, Hepatitis Genitourinary History: Reports: Pyelonephritis RESPIRATORY THERAPY DIRECTOR History: Reports: , Other (See Below) Other RESPIRATORY THERAPY DIRECTOR History: reports tubes are tied Musculoskeletal History: Reports: Arthritis, Back Pain, Chronic, Fracture, Fibromyalgia Neurological History: Reports: Migraines Psychiatric History: Reports: Anxiety, Depression Endocrine/Metabolic History: Reports: Diabetes, Gestational - Infectious Disease History Infectious Disease History: Reports: Hepatitis C - Past Surgical History HEENT Surgical History: Reports: None Cardiovascular Surgical History: Reports: None GI Surgical History: Reports: Cholecystectomy Female Surgical History: Reports: None Endocrine Surgical History: Reports: None Neurological Surgical History: Reports: Spinal Fusion Musculoskeletal Surgical History: Reports: None Dermatological Surgical History: Reports: None Social & Family History - Family History Family Medical History: Noncontributory - Tobacco Use Smoking Status *Q: Current Every Day Smoker Years of Tobacco use: 20 Packs/Tins Daily: 1 - Caffeine Use Caffeine Use: Reports: Soda - Recreational Drug Use Recreational Drug Use: Yes Drug Use in Last 12 Months: Yes Recreational Drug Type: Reports: Methamphetamine ED ROS GENERAL - Review of Systems Review Of Systems: See Below Constitutional: Denies: Fever, Chills, Malaise, Weakness HEENT: Denies: Ear Pain, Rhinitis, Sinus Problem, Throat Pain Respiratory: Denies: Shortness of Breath, Cough Cardiovascular: Reports: Chest Pain. Denies: Edema, Lightheadedness Endocrine: Denies: Fatigue GI/Abdominal: Denies: Abdominal Pain, Nausea, Vomiting : Reports: No Symptoms Musculoskeletal: Reports: No Symptoms Skin: Reports: No Symptoms Neurological: Denies: Confusion, Dizziness, Headache, Weakness Psychiatric: Reports: Anxiety ED EXAM, GENERAL - Physical Exam Exam: See Below Exam Limited By: No Limitations General Appearance: Alert, WD/WN, No Apparent Distress Ears: Normal External Exam, Normal TMs Nose: Normal Inspection, Normal Mucosa, No Blood Throat/Mouth: Normal Inspection, Normal Oropharynx Head: Normocephalic Neck: Normal Inspection, Supple, Non-Tender Respiratory/Chest: No Respiratory Distress, Lungs Clear, Normal Breath Sounds Cardiovascular: Tachycardia GI/Abdominal: Normal Bowel Sounds, Soft, Non-Tender Neurological: Alert, Oriented Skin Exam: Warm, Dry Course - Vital Signs Last Recorded V/S: Last Vital Signs Temp 98.1 F 10/20/18 07:50 Pulse 97 10/20/18 07:50 Resp 20 10/20/18 07:50 BP 173/106 H 10/20/18 07:50 Pulse Ox 100 10/20/18 07:50 - Orders/Labs/Meds Orders: Active Orders 24 hr Category Date Time Status EKG Documentation Completion [RC] STAT Care 10/20/18 02:07 Active Chest 2V [CR] Stat Exams 10/20/18 02:03 Taken NS + KCl 20mEq/L [Normal Saline with 20 mEq KCl] 1,000 Med 10/20/18 03:00 Active ml IV ASDIRECTED Medication Orders Potassium Chloride/Sodium Chloride (Normal Saline With 20 Meq Kcl) 1,000 mls @ 250 mls/hr IV ASDIRECTED PRABHAKAR Last Admin: 10/20/18 03:23 Dose: 250 mls/hr Labs: Laboratory Tests 10/20/18 10/20/18 10/20/18 Range/Units 02:20 02:20 02:20 WBC 6.4 (5.0-10.0) 10^3/uL RBC 4.59 (4.00-5.50) 10^6/uL Hgb 13.3 (12.0-16.0) g/dL Hct 38.7 (37.0-47.0) % MCV 84.3 (82.0-94.0) fL MCH 29.0 (27.0-32.0) pg MCHC 34.4 (33.0-38.0) g/dL RDW Coeff of Dian 13.7 (11.0-15.0) % Plt Count 366 (150-400) 10^3/uL Neut % (Auto) 67.0 (35-85) % Lymph % (Auto) 26.9 (10-55) % Harmon % (Auto) 5.3 (0-16) % Eos % (Auto) 0.5 (0-5) % Baso % (Auto) 0.3 (0-3) % Neut # (Auto) 4.30 (1.80-7.00) 10^3/uL Lymph # (Auto) 1.73 (1.00-4.80) 10^3/uL Harmon # (Auto) 0.34 (0.00-0.80) 10^3/uL Eos # (Auto) 0.03 (0.00-0.45) 10^3/uL Baso # (Auto) 0.02 10^3/uL PT 11.0 (9.7-12.3) SEC INR 1.06 (0.92-1.18) APTT 25.2 (23.2-32.3) SEC Sodium 140 (136-145) mEq/L Potassium 2.4 L* D (3.5-5.0) mEq/L Chloride 103 (98-106) mEq/L Carbon Dioxide 23 (21-32) mmol/L BUN 9 (7-18) mg/dL Creatinine 1.1 H D (0.6-1.0) mg/dL Est Cr Clr Drug Dosing 83.16 mL/min Estimated GFR (MDRD) 57 L (>=60) mL/min Glucose 164 H D (75-99) mg/dL Calcium 9.0 (8.4-10.1) mg/dL Lactate Dehydrogenase 209 H (100-190) U/L Creatine Kinase 86 (21-215) U/L Troponin I 0.049 (0.00-0.06) ng/mL Urine Opiates Screen (NEGATIVE) Ur Oxycodone Screen (NEGATIVE) Urine Methadone Screen (NEGATIVE) Ur Barbiturates Screen (NEGATIVE) U Tricyclic Antidepress (NEGATIVE) Ur Phencyclidine Scrn (NEGATIVE) Ur Amphetamine Screen (NEGATIVE) U Methamphetamines Scrn (NEGATIVE) Urine MDMA Screen (NEGATIVE) U Benzodiazepines Scrn (NEGATIVE) Urine Cocaine Screen (NEGATIVE) U Marijuana (THC) Screen (NEGATIVE) 10/20/18 10/20/18 Range/Units 07:41 07:41 WBC (5.0-10.0) 10^3/uL RBC (4.00-5.50) 10^6/uL Hgb (12.0-16.0) g/dL Hct (37.0-47.0) % MCV (82.0-94.0) fL MCH (27.0-32.0) pg MCHC (33.0-38.0) g/dL RDW Coeff of Dian (11.0-15.0) % Plt Count (150-400) 10^3/uL Neut % (Auto) (35-85) % Lymph % (Auto) (10-55) % Harmon % (Auto) (0-16) % Eos % (Auto) (0-5) % Baso % (Auto) (0-3) % Neut # (Auto) (1.80-7.00) 10^3/uL Lymph # (Auto) (1.00-4.80) 10^3/uL Harmon # (Auto) (0.00-0.80) 10^3/uL Eos # (Auto) (0.00-0.45) 10^3/uL Baso # (Auto) 10^3/uL PT (9.7-12.3) SEC INR (0.92-1.18) APTT (23.2-32.3) SEC Sodium (136-145) mEq/L Potassium 3.2 L D (3.5-5.0) mEq/L Chloride (98-106) mEq/L Carbon Dioxide (21-32) mmol/L BUN (7-18) mg/dL Creatinine (0.6-1.0) mg/dL Est Cr Clr Drug Dosing mL/min Estimated GFR (MDRD) (>=60) mL/min Glucose (75-99) mg/dL Calcium (8.4-10.1) mg/dL Lactate Dehydrogenase (100-190) U/L Creatine Kinase (21-215) U/L Troponin I (0.00-0.06) ng/mL Urine Opiates Screen Negative (NEGATIVE) Ur Oxycodone Screen Negative (NEGATIVE) Urine Methadone Screen Negative (NEGATIVE) Ur Barbiturates Screen Negative (NEGATIVE) U Tricyclic Antidepress Positive H (NEGATIVE) Ur Phencyclidine Scrn Negative (NEGATIVE) Ur Amphetamine Screen Positive H (NEGATIVE) U Methamphetamines Scrn Positive H (NEGATIVE) Urine MDMA Screen Negative (NEGATIVE) U Benzodiazepines Scrn Negative (NEGATIVE) Urine Cocaine Screen Negative (NEGATIVE) U Marijuana (THC) Screen Negative (NEGATIVE) Meds: Medications Generic Name Dose Route Start Last Admin Trade Name Freq PRN Reason Stop Dose Admin Potassium Chloride/Sodium Chloride 1,000 mls @ 250 mls/hr 10/20/18 03:00 03:23 Normal Saline With 20 Meq Kcl IV 250 mls/hr ASDIRECTED PRABHAKAR Administration Discontinued Medications Generic Name Dose Route Start Last Admin Trade Name Freq PRN Reason Stop Dose Admin Potassium Chloride 40 meq/ 100 mls @ 25 mls/hr 10/20/18 02:52 10/20/18 03:24 Premix IV 10/20/18 06:51 25 mls/hr ONETIME ONE Administration - Re-Assessments/Exams Free Text/Narrative Re-Assessment/Exam: 10/20/18 08:52 Labs done this am. Potassium 3.2. Will need to increase potassium oral to 3 tabs daily. Follow up with Luisa on Thursday for repeat labs/ER follow up. Denies any pain this am. No concerns. Had pulled own IV out prior to my arrival. Departure - Departure Time of Disposition: 08:54 Disposition: Home, Self-Care 01 Condition: Fair Clinical Impression: Atypical chest pain, Hypokalemia - Discharge Information *PRESCRIPTION DRUG MONITORING PROGRAM REVIEWED*: No *COPY OF PRESCRIPTION DRUG MONITORING REPORT IN PATIENT ANDIE: No Forms: ED Department Discharge Additional Instructions: 1. Push fluids 2. Increase potassium to 3 caps per day to total of 30 meq~ take 10 meq three times per day 3. Follow up with Luisa on Thursday and have recheck labs at that time 4. Contact provider for any ongoing concerns. - My Orders Last 24 Hours: My Active Orders 10/20/18 02:03 Chest 2V [CR] Stat 10/20/18 02:07 EKG Documentation Completion [RC] STAT 10/20/18 03:00 NS + KCl 20mEq/L [Normal Saline with 20 mEq KCl] 1,000 ml IV ASDIRECTED - Assessment/Plan Last 24 Hours: My Active Orders 10/20/18 02:03 Chest 2V [CR] Stat 10/20/18 02:07 EKG Documentation Completion [RC] STAT 10/20/18 03:00 NS + KCl 20mEq/L [Normal Saline with 20 mEq KCl] 1,000 ml IV ASDIRECTED
[2018-10-20] MEDS: NS + KCl 20mEq/L 1,000 ML IV SCH (03:23)
[2018-10-20] MEDS: Potassium Chloride Riders 40 MEQ in Premix Bag 1 BAG IV ONE (03:24)
[2018-10-20 08:39] VITALS: BP 173/106
== END 2018-10-20 09:45 | disposition home or self-care (01) ==
LOC: CC.ED 01:39
DX: R07.2 Precordial pain (principal); I10 Essential (primary) hypertension; F17.210 Nicotine dependence, cigarettes, uncomplicated; R07.89 Other chest pain; E87.6 Hypokalemia; Z88.8 Allergy status to other drugs, medicaments and biological substances
CPT/HCPCS: 36415; 71046; 80048; 80305-QW; 82550; 83615; 84132; 84484; 85025; 85610; 85730; 93005; 96365; 96366; 99285-25; J3480

== ENCOUNTER 2018-10-20 21:59 | Observation (INO) | payer MEDICARE, MEDICAID ==
[2018-10-20 22:34] LABS: CHLORIDE,CL 106 mEq/L (98-106); SODIUM,NA 140 mEq/L (136-145)
--- NOTE | 2018-10-20 23:07 | EDM.PDOC ---
ED HPI GENERAL MEDICAL PROBLEM - General Chief Complaint: Chest Pain Stated Complaint: "Chest pain and anxiety" Time Seen by Provider: 10/20/18 22:02 Source of Information: Reports: Patient History Limitations: Reports: No Limitations - History of Present Illness INITIAL COMMENTS - FREE TEXT/NARRATIVE: Arabella is a 33 yo female who presents to the ED via [facility] with complaints of midsternal/left anterior chest pain. EMS were called to her home last night with same symptoms and was brought into the ED with full cardiac work up. She was sinus tach last night. Potassium was low at 2.9 and she was given potassium supplementation via IV fluids and was 3.2 this morning at discharge. She admits to history of panic attacks. Pain really never improved through out the day today. She states this evening her had asked her to leave the house d/t her recent methamphetamine use. She states she has been using since she was 18 off and on. Up until a few weeks ago she states she had been absent from any drug use. Upon arrival of EMS to her friends house this evening she was having chest pains and removed her shirt. EMS had a difficult time getting her calmed down and gave her 5mg of Versed and 5 mg of Haldol. She denies any meth use today, stating last time of using was yesterday. She did have a positive drug screen this morning for methamphetamine use. Onset Date: 10/19/18 Duration: Constant Location: Reports: Chest Quality: Reports: Ache, Dull Improves with: Reports: None Worsens with: Reports: Other (anxiety) Associated Symptoms: Reports: Chest Pain. Denies: Cough, Fever/Chills, Headaches, Nausea/Vomiting, Shortness of Breath, Syncope, Weakness - Related Data Allergies Allergy/AdvReac Type Severity Reaction Status Date / Time ketorolac tromethamine Allergy Rash Verified 10/20/18 01:50 [From Toradol] Home Meds: Home Meds Gabapentin 1,200 mg PO TID 11/04/15 [History] QUEtiapine Fumarate [Seroquel] 300 mg PO BEDTIME 11/04/15 [History] Venlafaxine [Effexor] 225 mg PO DAILY 11/04/15 [History] HYDROcodone/Ibuprofen [Hydrocodone-Ibuprofen 7.5-200] 2 tab PO QID PRN 07/20/18 [History] Potassium Chloride 10 meq PO DAILY 10/20/18 [History] Past Medical History HEENT History: Reports: Impaired Vision Cardiovascular History: Reports: Hypertension Gastrointestinal History: Reports: GERD, Hepatitis Genitourinary History: Reports: Pyelonephritis MONITOR CAR OPERATOR History: Reports: , Other (See Below) Other MONITOR CAR OPERATOR History: reports tubes are tied Musculoskeletal History: Reports: Arthritis, Back Pain, Chronic, Fracture, Fibromyalgia Neurological History: Reports: Migraines Psychiatric History: Reports: Anxiety, Depression Endocrine/Metabolic History: Reports: Diabetes, Gestational - Infectious Disease History Infectious Disease History: Reports: Hepatitis C - Past Surgical History HEENT Surgical History: Reports: None Cardiovascular Surgical History: Reports: None GI Surgical History: Reports: Cholecystectomy Female Surgical History: Reports: None Endocrine Surgical History: Reports: None Neurological Surgical History: Reports: Spinal Fusion Musculoskeletal Surgical History: Reports: None Dermatological Surgical History: Reports: None Social & Family History - Family History Family Medical History: Noncontributory - Caffeine Use Caffeine Use: Reports: Soda ED ROS GENERAL - Review of Systems Review Of Systems: See Below Constitutional: Reports: No Symptoms HEENT: Reports: No Symptoms Respiratory: Reports: No Symptoms. Denies: Shortness of Breath, Wheezing, Cough Cardiovascular: Reports: Chest Pain. Denies: Blood Pressure Problem, Lightheadedness, Palpitations, Syncope GI/Abdominal: Reports: No Symptoms : Reports: No Symptoms Musculoskeletal: Reports: No Symptoms Neurological: Reports: No Symptoms Psychiatric: Reports: Anxiety ED EXAM, GENERAL - Physical Exam Exam: See Below Exam Limited By: No Limitations General Appearance: Alert, WD/WN, Anxious Eye Exam: Bilateral Eye: Normal Inspection, PERRL Ears: Normal External Exam, Normal Canal, Hearing Grossly Normal, Normal TMs Nose: Normal Inspection, Normal Mucosa, No Blood Throat/Mouth: Normal Inspection, Normal Lips, Normal Teeth, Normal Gums, Normal Oropharynx, Normal Voice, No Airway Compromise Head: Atraumatic, Normocephalic Neck: Normal Inspection, Supple Respiratory/Chest: No Respiratory Distress, Lungs Clear, Normal Breath Sounds Cardiovascular: Normal Peripheral Pulses, No Edema, No Murmur, Tachycardia GI/Abdominal: Normal Bowel Sounds, Soft, Non-Tender, No Mass Extremities: Normal Inspection, No Pedal Edema Neurological: Alert, Oriented, Normal Cognition, No Motor/Sensory Deficits Psychiatric: Anxious. No: Depressed Mood, Flat Affect Skin Exam: Warm, Dry, Intact, Normal Color, No Rash Course - Vital Signs Last Recorded V/S: Last Vital Signs Temp 97.5 F 10/20/18 23:12 Pulse 99 10/20/18 23:12 Resp 20 10/20/18 23:12 BP 148/97 H 10/20/18 23:12 Pulse Ox 99 10/20/18 23:12 - Orders/Labs/Meds Orders: Active Orders 24 hr Category Date Time Status Patient Status Manage Transfer [TRANSFER] Routine ADT 10/20/18 22:56 Ordered Resuscitation Status Routine Resus Stat 10/20/18 22:57 Ordered Labs: Laboratory Tests 10/20/18 10/20/18 10/20/18 Range/Units 22:16 22:16 22:16 WBC 8.0 (5.0-10.0) 10^3/uL RBC 4.82 (4.00-5.50) 10^6/uL Hgb 14.0 (12.0-16.0) g/dL Hct 40.4 (37.0-47.0) % MCV 83.8 (82.0-94.0) fL MCH 29.0 (27.0-32.0) pg MCHC 34.7 (33.0-38.0) g/dL RDW Coeff of Dian 13.9 (11.0-15.0) % Plt Count 382 (150-400) 10^3/uL Neut % (Auto) 68.8 (35-85) % Lymph % (Auto) 22.7 (10-55) % Cowley % (Auto) 7.9 (0-16) % Eos % (Auto) 0.4 (0-5) % Baso % (Auto) 0.2 (0-3) % Neut # (Auto) 5.51 (1.80-7.00) 10^3/uL Lymph # (Auto) 1.82 (1.00-4.80) 10^3/uL Cowley # (Auto) 0.63 (0.00-0.80) 10^3/uL Eos # (Auto) 0.03 (0.00-0.45) 10^3/uL Baso # (Auto) 0.02 10^3/uL PT 11.3 (9.7-12.3) SEC INR 1.09 (0.92-1.18) APTT 21.9 L (23.2-32.3) SEC Sodium 140 (136-145) mEq/L Potassium 2.9 L* (3.5-5.0) mEq/L Chloride 106 (98-106) mEq/L Carbon Dioxide 21 (21-32) mmol/L BUN 8 (7-18) mg/dL Creatinine 1.2 H (0.6-1.0) mg/dL Est Cr Clr Drug Dosing TNP Estimated GFR (MDRD) 51 L (>=60) mL/min Glucose 118 H D (75-99) mg/dL Calcium 9.6 (8.4-10.1) mg/dL Magnesium 1.7 L (1.8-2.4) mg/dL Lactate Dehydrogenase 254 H (100-190) U/L Creatine Kinase 151 (21-215) U/L Troponin I < 0.017 (0.00-0.06) ng/mL Departure - Departure Time of Disposition: 23:00 Disposition: Refer to Observation Clinical Impression: Hypokalemia, Atypical chest pain, Anxiety attack Forms: ED Department Discharge - Problem List & Annotations (1) Anxiety attack SNOMED Code(s): 980353179 Code(s): F41.0 - PANIC DISORDER [EPISODIC PAROXYSMAL ANXIETY] Status: Acute (2) Atypical chest pain SNOMED Code(s): 913297766 Code(s): R07.89 - OTHER CHEST PAIN Status: Acute (3) Hypokalemia SNOMED Code(s): 28471087 Code(s): E87.6 - HYPOKALEMIA Status: Acute - My Orders Last 24 Hours: My Active Orders 10/20/18 22:56 Patient Status Manage Transfer [TRANSFER] Routine 10/20/18 22:57 Resuscitation Status Routine - Assessment/Plan Admission H&P: Please use this note as an admission H&P Last 24 Hours: My Active Orders 10/20/18 22:56 Patient Status Manage Transfer [TRANSFER] Routine 10/20/18 22:57 Resuscitation Status Routine Plan: Arabella has been stable since her time in the ED. Vitals signs stable with 99% O2 on RA. Will admit to Dr. Jalloh's services under observation for hypokalemia and atypical chest pain. Cardiac enzymes to be completed in am. Will give 1 gm of Magnesium sulfate as well as it was slightly low at 1.7. Arabella verbalized understanding and is resting comfortably now.
[2018-10-21] MEDS ORDERED: Ibuprofen 200 MG Tab PO PRN (00:19)
[2018-10-21] MEDS ORDERED: NS + KCl 20mEq/L 1,000 ML IV SCH (00:19)
[2018-10-21] MEDS ORDERED: Magnesium Sulfate (4.06 MEQ/ML) 1 GM/2 ML SDV IV ONE (00:19)
[2018-10-21] MEDS ORDERED: LORazepam 2 MG/ML Syringe IVPUSH PRN (01:54)
[2018-10-21 08:18] LABS: CHLORIDE,CL 107 mEq/L (98-106); SODIUM,NA 141 mEq/L (136-145)
[2018-10-21] MEDS: Potassium Chloride 10 MEQ Tab.ER PO SCH (10:00)
[2018-10-21] MEDS: Gabapentin 300 MG Cap PO SCH ×3 (10:00→19:50)
[2018-10-21] MEDS: Venlafaxine 37.5 MG Tab PO SCH (10:02)
[2018-10-21] MEDS: Acetaminophen 325 MG Tab PO PRN ×2 (10:03→15:16)
--- NOTE | 2018-10-21 12:34 | PN ---
DATE: 10/21/2018 S: This is a pleasant 33-year-old female, who was admitted to the hospital yesterday evening with concerns of atypical chest pain. She has been having a lot of anxiety lately with a lot of panic attacks. She was actually just initially observed in the ER and the hospital the night prior with same chest pains and anxiety. Her potassium at that time was 2.9. She did get IV fluids and it did bring her potassium up to 3.2. She was discharged home yesterday morning, however, did end up returning to the emergency room via ambulance from outside local town this evening with the same symptoms. Initial laboratory work showed a grossly unremarkable CBC. Cardiac enzymes are negative. EKG did not show any signs of any acute cardiac process. Potassium again was 2.9 yesterday. She was admitted to the hospital under observation, was given IV fluids. Prior to arrival, she did get 5 mg Haldol and Versed via paramedics, so we elected not to give her any further sedative medications yesterday evening. She did have an uneventful stay so far. Slept well throughout the night. She is complaining of a little bit of headache today and would like to get her home medications if she can take them. She denies any further chest pain. She denies any shortness of breath. No palpitations in her chest. There is feeling that it is well controlled this morning. O: VITAL SIGNS: Blood pressure is 120/63, pulse 88, temp 97.2, O2 is 99% on room air with respiratory rate of 20. GENERAL: Pleasant, cooperative female. She is lying in bed, does not appear to be in any acute distress nor acutely ill; answering all questions appropriately. She is calm. HEENT: Grossly unremarkable. LUNGS: Clear to auscultation. I do not hear any adventitious sounds. CARDIAC: Regular rate and rhythm. No murmurs, gallops, or rubs. PSYCH: No present signs of anxiety or panic attacks. LABORATORY WORK: Potassium today is 3.5. Cardiac enzymes negative. ASSESSMENT: 1. ATYPICAL CHEST PAIN. 2. ANXIETY ATTACK. 3. HYPOKALEMIA, RESOLVED. P: Due to inclement weather we are unable to discharge at this point in time. We will closely monitor again for another night and which Arabella is in agreement. We will make sure she is getting her home medications today. We will discontinue her IV fluids and give her potassium supplementation orally. We will look at discharge tomorrow when she was in complete agreement. We will be in contact with her Marilyn Clemons patient's mental health provider in regard to her current condition. She is okay with possibly seeing after discharge tomorrow from the hospital. BRODIE/ASHU /[id number]
[2018-10-21] MEDS ORDERED: QUEtiapine 100 MG Tab PO SCH (20:00)
[2018-10-22] MEDS: Potassium Chloride 10 MEQ Tab.ER PO SCH (07:54)
[2018-10-22] MEDS: Gabapentin 300 MG Cap PO SCH (07:54)
[2018-10-22] MEDS: Venlafaxine 37.5 MG Tab PO SCH (07:55)
[2018-10-22] MEDS: Acetaminophen 325 MG Tab PO PRN (07:57)
[2018-10-22 08:02] LABS: CHLORIDE,CL 108 mEq/L (98-106); SODIUM,NA 143 mEq/L (136-145)
[2018-10-22 11:53] VITALS: BP 151/95
--- NOTE | 2018-10-22 21:45 | PCM.DCSUM1 ---
Discharge Summary - Hospital Course Free Text/Narrative:: Patient presented to ER with complaints of left sternal chest pain. Was also in the ER the night prior for same complaint. Patient had routine cardiac work up the first time with a low potassium of 2.4. Was given IV supplementation with her potassium increasing to 3.2 in the am. She had relief of her chest pain. Had admitted to meth use and drug screen was positive. Has also been seeing Marilyn. This ER visit was a result of increased chest pain yet again. Related that her had asked her to leave due to recent drug use. She was uncooperative at the scene, was given Haldol and Versed by the hand molder and caster so calm on admit to ER. Cardiac work up negative, potassium low at 2.9 despite IV doses earlier and increasing her potassium from 10 meq to to take 30 meq during the day. Admitted for cardiac monitoring, potassium replacement. Diagnosis: Stroke: No Modified [place] Scale: No Symptoms at All Modified [place] Scale Score: 0 - Discharge Data Discharge Date: 10/22/18 Discharge Disposition: Home, Self-Care 01 Condition: Good - Patient Summary/Data Complications: none Hospital Course: Patient feeling better. Denies any further chest pain. Is alert and cooperative. Cardiac work up has remained negative. Potassium now normalized at 3.5 yesterday, 3.6 today. Tolerating oral intake. Has visited with Marilyn. Will start Abilify on discharge. Follow up with Luisa next week, repeat labs at that time. Continue oral potassium at 30 meq at home. - Patient Instructions Diet: Usual Diet as Tolerated Activity: As Tolerated - Discharge Plan *PRESCRIPTION DRUG MONITORING PROGRAM REVIEWED*: No *COPY OF PRESCRIPTION DRUG MONITORING REPORT IN PATIENT ANDIE: No Home Medications: Home Meds Gabapentin 1,200 mg PO TID 11/04/15 [History] Venlafaxine [Effexor] 225 mg PO DAILY 11/04/15 [History] HYDROcodone/Ibuprofen [Hydrocodone-Ibuprofen 7.5-200] 2 tab PO QID PRN 07/20/18 [History] Potassium Chloride 10 meq PO DAILY 10/20/18 [History] ARIPiprazole [Abilify] 5 mg PO DAILY 10/22/18 [History] Forms: ED Department Discharge Referrals: Luisa Jaffe NP [ED Midlevel Provider] - (Follow up with Luisa in one week. Will need labs prior to visit) - Discharge Summary/Plan Comment DC Time >30 min.: No - General Info Date of Service: 10/22/18 Admission Dx/Problem (Free Text: Atypical Chest Pain Anxiety Functional Status: Reports: Pain Controlled, Tolerating Diet, Ambulating - Review of Systems General: Denies: Fever, Weakness, Fatigue HEENT: Reports: No Symptoms Pulmonary: Denies: Shortness of Breath, Cough Cardiovascular: Denies: Chest Pain, Edema, Lightheadedness Gastrointestinal: Denies: Abdominal Pain, Nausea, Vomiting Genitourinary: Reports: No Symptoms Musculoskeletal: Reports: No Symptoms Skin: Reports: No Symptoms Neurological: Reports: No Symptoms Psychiatric: Reports: Anxiety - Patient Data Vitals - Most Recent: Last Vital Signs Temp 98.6 F 10/22/18 11:52 Pulse 73 10/22/18 11:52 Resp 16 10/22/18 11:52 BP 151/95 H 10/22/18 11:52 Pulse Ox 99 10/22/18 11:52 Weight - Most Recent: 250 lb Lab Results - Last 24 hrs: Laboratory Results - last 24 hr 10/22/18 Range/Units 07:30 Sodium 143 (136-145) mEq/L Potassium 3.6 (3.5-5.0) mEq/L Chloride 108 H (98-106) mEq/L Carbon Dioxide 25 (21-32) mmol/L BUN 11 (7-18) mg/dL Creatinine 0.8 (0.6-1.0) mg/dL Est Cr Clr Drug Dosing 114.35 mL/min Estimated GFR (MDRD) > 60 (>=60) mL/min Glucose 94 (75-99) mg/dL Calcium 8.9 (8.4-10.1) mg/dL Magnesium 1.9 (1.8-2.4) mg/dL Med Orders - Current: Current Medications Discontinued Medications Acetaminophen (Tylenol) 650 mg PO Q4H PRN PRN Reason: Pain Last Admin: 10/22/18 07:57 Dose: 650 mg Gabapentin (Neurontin) 1,200 mg PO TID PRABHAKAR Last Admin: 10/22/18 07:54 Dose: 1,200 mg Potassium Chloride/Sodium Chloride (Normal Saline With 20 Meq Kcl) 1,000 mls @ 125 mls/hr IV ASDIRECTED PRABHAKAR Last Admin: 10/21/18 01:23 Dose: 125 mls/hr Magnesium Sulfate/Dextrose (Magnesium 1 Gm In D5w 100 Ml) 100 mls @ 100 mls/hr IV ONETIME ONE Stop: 10/21/18 01:59 Last Admin: 10/21/18 01:28 Dose: 100 mls/hr Ibuprofen (Motrin) 200 mg PO Q6H PRN PRN Reason: Pain Last Admin: 10/21/18 11:55 Dose: 200 mg Lorazepam (Ativan) 1 mg IVPUSH ONETIME PRN PRN Reason: Anxiety Potassium Chloride (Klor-Con 10) 30 meq PO DAILY [facility] Last Admin: 10/22/18 07:54 Dose: 30 meq Quetiapine Fumarate (Seroquel) 300 mg PO BEDTIME [facility] Last Admin: 10/21/18 19:50 Dose: 300 mg Venlafaxine HCl (Effexor) 225 mg PO DAILY [facility] Last Admin: 10/22/18 07:55 Dose: 225 mg - Exam General: Reports: Alert, Oriented HEENT: Reports: Mucous Membr. Moist/Cornelius Neck: Reports: Supple Lungs: Reports: Clear to Auscultation, Normal Respiratory Effort Cardiovascular: Reports: Regular Rate, Regular Rhythm GI/Abdominal Exam: Normal Bowel Sounds, Soft, Non-Tender Extremities: Normal Inspection, No Pedal Edema Skin: Reports: Warm, Dry Neurological: Reports: No New Focal Deficit
== END 2018-10-22 13:55 | disposition home or self-care (01) ==
LOC: CC.ED 21:59 → CC.MS 22:57 → UNDOADMOB 23:30 → UNDODISOB 10-22 13:55
PROVIDERS: ADMIT Physician Assistant Medical; ATTEND Family Medicine
DX: R07.89 Other chest pain (principal); E87.6 Hypokalemia; F41.0 Panic disorder [episodic paroxysmal anxiety]; I10 Essential (primary) hypertension; K21.9 Gastro-esophageal reflux disease without esophagitis; F32.9 Major depressive disorder, single episode, unspecified; Z79.899 Other long term (current) drug therapy
CPT/HCPCS: 36415; 71046; 80048; 80305-QW; 82550; 83615; 83735; 84132; 84484; 85025; 85610; 85730; 93005; 96365; 96366; 96368; 99285-25; A9270-GY; G0378; J3475; J3480

== ENCOUNTER 2019-01-27 13:10 | Emergency (ER) | payer MEDICARE, MEDICAID ==
--- NOTE | 2019-01-27 13:31 | EDM.PDOC ---
ED HPI GENERAL MEDICAL PROBLEM - General Chief Complaint: Chest Pain Stated Complaint: CP Time Seen by Provider: 01/27/19 13:17 Source of Information: Reports: Patient History Limitations: Reports: No Limitations - History of Present Illness INITIAL COMMENTS - FREE TEXT/NARRATIVE: States that she developed some midsternal chest pain that goes to the left arm about 10 am today. She dropped a dresser on her right foot /leg 2 days ago and has some bruising noted to the area. Denies injuring her chest when that occurred. has some bruising noted to the right arm which she refuses to tell me what happened. Denies feeling SOB with it or diaphoretic. Admits that she has relapsed and is back on meth. Onset: Today Location: Reports: Chest Left Chest Pain Score (Numeric/FACES): 6 Right Ankle Pain Score (Numeric/FACES): 6 - Related Data Allergies Allergy/AdvReac Type Severity Reaction Status Date / Time ketorolac tromethamine Allergy Rash Verified 01/27/19 13:25 [From Toradol] Home Meds: Home Meds Gabapentin 1,200 mg PO TID 11/04/15 [History] Venlafaxine [Effexor] 225 mg PO DAILY 11/04/15 [History] HYDROcodone/Ibuprofen [Hydrocodone-Ibuprofen 7.5-200] 2 tab PO QID PRN 07/20/18 [History] Potassium Chloride 10 meq PO DAILY 10/20/18 [History] Pregabalin [Lyrica] 1 tab PO DAILY 01/27/19 [History] Past Medical History HEENT History: Reports: Impaired Vision Cardiovascular History: Reports: Hypertension Gastrointestinal History: Reports: GERD, Hepatitis Genitourinary History: Reports: Pyelonephritis SECURITY SUPERVISOR History: Reports: , Other (See Below) Other SECURITY SUPERVISOR History: reports tubes are tied Musculoskeletal History: Reports: Arthritis, Back Pain, Chronic, Fracture, Fibromyalgia Neurological History: Reports: Migraines Psychiatric History: Reports: Anxiety, Depression Other Psychiatric History: Hx of meth use. Endocrine/Metabolic History: Reports: Diabetes, Gestational - Infectious Disease History Infectious Disease History: Reports: Hepatitis C - Past Surgical History HEENT Surgical History: Reports: None Cardiovascular Surgical History: Reports: None GI Surgical History: Reports: Cholecystectomy Female Surgical History: Reports: None Endocrine Surgical History: Reports: None Neurological Surgical History: Reports: Spinal Fusion Musculoskeletal Surgical History: Reports: None Dermatological Surgical History: Reports: None Social & Family History - Family History Family Medical History: Noncontributory - Caffeine Use Caffeine Use: Reports: Soda - Recreational Drug Use Recreational Drug Type: Reports: Methamphetamine ED ROS GENERAL - Review of Systems Review Of Systems: See Below Constitutional: Denies: Fever, Chills HEENT: Reports: No Symptoms Respiratory: Reports: No Symptoms Cardiovascular: Reports: Chest Pain. Denies: Edema GI/Abdominal: Reports: No Symptoms : Reports: No Symptoms Musculoskeletal: Reports: Leg Pain (right side from previous injury) Skin: Reports: No Symptoms Neurological: Reports: Other (very slow to respond to questions when asked.) Psychiatric: Reports: Other (Avoids answering questions at times. Just stares off.) ED EXAM, GENERAL - Physical Exam Exam: See Below Exam Limited By: No Limitations General Appearance: Alert, WD/WN, No Apparent Distress Ears: Normal External Exam, Normal Canal, Normal TMs Nose: Normal Inspection Throat/Mouth: Normal Inspection, Normal Oropharynx, No Airway Compromise Head: Atraumatic, Normocephalic Neck: Normal Inspection, Supple, Non-Tender, Full Range of Motion Respiratory/Chest: No Respiratory Distress, Lungs Clear, Normal Breath Sounds, Other (anterior chest wall is tender to touch.) Cardiovascular: Regular Rate, Rhythm, No Edema, No Murmur GI/Abdominal: Normal Bowel Sounds, Soft, Non-Tender Back Exam: Normal Inspection, Full Range of Motion Extremities: Other (mild swelling and bruising of the right lower leg.) Psychiatric: Flat Affect Skin Exam: Warm, Dry, Intact Course - Vital Signs Last Recorded V/S: Last Vital Signs Temp 98.9 F 01/27/19 13:10 Pulse 107 H 01/27/19 14:25 Resp 20 01/27/19 14:25 BP 173/110 H 01/27/19 14:25 Pulse Ox 98 01/27/19 14:25 - Orders/Labs/Meds Orders: Active Orders 24 hr Category Date Time Status Chest 2V [CR] Routine Exams 01/27/19 Taken Labs: Laboratory Tests 01/27/19 01/27/19 01/27/19 Range/Units 13:38 13:38 13:38 WBC 6.3 (5.0-10.0) 10^3/uL RBC 4.71 (4.00-5.50) 10^6/uL Hgb 13.5 (12.0-16.0) g/dL Hct 39.8 (37.0-47.0) % MCV 84.5 (82.0-94.0) fL MCH 28.7 (27.0-32.0) pg MCHC 33.9 (33.0-38.0) g/dL RDW Coeff of Dian 14.5 (11.0-15.0) % Plt Count 282 (150-400) 10^3/uL Neut % (Auto) 76.3 (35-85) % Lymph % (Auto) 18.4 (10-55) % [place] % (Auto) 4.5 (0-16) % Eos % (Auto) 0.5 (0-5) % Baso % (Auto) 0.3 (0-3) % Neut # (Auto) 4.78 (1.80-7.00) 10^3/uL Lymph # (Auto) 1.15 (1.00-4.80) 10^3/uL [place] # (Auto) 0.28 (0.00-0.80) 10^3/uL Eos # (Auto) 0.03 (0.00-0.45) 10^3/uL Baso # (Auto) 0.02 10^3/uL PT 10.6 (9.7-12.3) SEC INR 1.03 (0.92-1.18) D-Dimer, Quantitative 0.38 (0.00-0.50) Sodium 140 (136-145) mEq/L Potassium 3.7 (3.5-5.0) mEq/L Chloride 103 (98-106) mEq/L Carbon Dioxide 20 L (21-32) mmol/L BUN 8 (7-18) mg/dL Creatinine 0.7 (0.6-1.0) mg/dL Est Cr Clr Drug Dosing 130.68 mL/min Estimated GFR (MDRD) > 60 (>=60) mL/min Glucose 114 H (75-99) mg/dL Calcium 9.4 (8.4-10.1) mg/dL Lactate Dehydrogenase 269 H (100-190) U/L Creatine Kinase 283 H (21-215) U/L Troponin I < 0.017 (0.00-0.06) ng/mL Urine Color (YELLOW) Urine Appearance (CLEAR) Urine pH (4.5-8.0) Ur Specific [place] (1.003-1.020) Urine Protein (NEGATIVE) mg/dL Urine Glucose (UA) (NEGATIVE) mg/dL Urine Ketones (NEGATIVE) mg/dL Urine Occult Blood (NEGATIVE) Urine Nitrite (NEGATIVE) Urine Bilirubin (NEGATIVE) Urine Urobilinogen (0.2-1.0) EU/dL Ur Leukocyte Esterase (NEGATIVE) Urine RBC (0-5) /HPF Urine WBC (0-5) /HPF Ur Epithelial Cells (NOT SEEN) /HPF Urine Bacteria (NOT SEEN) /HPF Urine Opiates Screen (NEGATIVE) Ur Oxycodone Screen (NEGATIVE) Urine Methadone Screen (NEGATIVE) Ur Barbiturates Screen (NEGATIVE) U Tricyclic Antidepress (NEGATIVE) Ur Phencyclidine Scrn (NEGATIVE) Ur Amphetamine Screen (NEGATIVE) U Methamphetamines Scrn (NEGATIVE) Urine MDMA Screen (NEGATIVE) U Benzodiazepines Scrn (NEGATIVE) Urine Cocaine Screen (NEGATIVE) U Marijuana (THC) Screen (NEGATIVE) 01/27/19 01/27/19 Range/Units 13:55 13:55 WBC (5.0-10.0) 10^3/uL RBC (4.00-5.50) 10^6/uL Hgb (12.0-16.0) g/dL Hct (37.0-47.0) % MCV (82.0-94.0) fL MCH (27.0-32.0) pg MCHC (33.0-38.0) g/dL RDW Coeff of Dian (11.0-15.0) % Plt Count (150-400) 10^3/uL Neut % (Auto) (35-85) % Lymph % (Auto) (10-55) % [place] % (Auto) (0-16) % Eos % (Auto) (0-5) % Baso % (Auto) (0-3) % Neut # (Auto) (1.80-7.00) 10^3/uL Lymph # (Auto) (1.00-4.80) 10^3/uL [place] # (Auto) (0.00-0.80) 10^3/uL Eos # (Auto) (0.00-0.45) 10^3/uL Baso # (Auto) 10^3/uL PT (9.7-12.3) SEC INR (0.92-1.18) D-Dimer, Quantitative (0.00-0.50) Sodium (136-145) mEq/L Potassium (3.5-5.0) mEq/L Chloride (98-106) mEq/L Carbon Dioxide (21-32) mmol/L BUN (7-18) mg/dL Creatinine (0.6-1.0) mg/dL Est Cr Clr Drug Dosing mL/min Estimated GFR (MDRD) (>=60) mL/min Glucose (75-99) mg/dL Calcium (8.4-10.1) mg/dL Lactate Dehydrogenase (100-190) U/L Creatine Kinase (21-215) U/L Troponin I (0.00-0.06) ng/mL Urine Color Yellow (YELLOW) Urine Appearance Clear (CLEAR) Urine pH 7.0 (4.5-8.0) Ur Specific [place] >= 1.030 H (1.003-1.020) Urine Protein 100 H (NEGATIVE) mg/dL Urine Glucose (UA) Negative (NEGATIVE) mg/dL Urine Ketones >=160 H (NEGATIVE) mg/dL Urine Occult Blood Negative (NEGATIVE) Urine Nitrite Negative (NEGATIVE) Urine Bilirubin Small H (NEGATIVE) Urine Urobilinogen 1.0 (0.2-1.0) EU/dL Ur Leukocyte Esterase Negative (NEGATIVE) Urine RBC Not seen (0-5) /HPF Urine WBC Not seen (0-5) /HPF Ur Epithelial Cells Moderate H (NOT SEEN) /HPF Urine Bacteria Occasional H (NOT SEEN) /HPF Urine Opiates Screen Negative (NEGATIVE) Ur Oxycodone Screen Negative (NEGATIVE) Urine Methadone Screen Negative (NEGATIVE) Ur Barbiturates Screen Negative (NEGATIVE) U Tricyclic Antidepress Negative (NEGATIVE) Ur Phencyclidine Scrn Negative (NEGATIVE) Ur Amphetamine Screen Positive H (NEGATIVE) U Methamphetamines Scrn Positive H (NEGATIVE) Urine MDMA Screen Positive H (NEGATIVE) U Benzodiazepines Scrn Positive H (NEGATIVE) Urine Cocaine Screen Negative (NEGATIVE) U Marijuana (THC) Screen Negative (NEGATIVE) - Re-Assessments/Exams Free Text/Narrative Re-Assessment/Exam: 01/27/19 14:10 In to discuss the positive drug screen. She is wanting and willing to go back to treatment and would like to go back to [facility]. I did contact them and gave them her information and they will contact her to get into the program or if needed will go into hospitalization. Pt is in agreement with this. She denies being suicidal at this time. Departure - Departure Time of Disposition: 14:34 Disposition: Home, Self-Care 01 Condition: Good Clinical Impression: Methamphetamine dependence, episodic, Atypical chest pain Referrals: Katalina Solares PA-C [Primary Care Provider] - Forms: ED Department Discharge Additional Instructions: [facility] will call you with appt. for treatment options avoid meth or any other drugs Follow up with Marilyn Clemons in the clinic prior to that if needed. - Problem List & Annotations (1) Methamphetamine dependence, episodic SNOMED Code(s): 487611100 Code(s): F15.20 - OTHER STIMULANT DEPENDENCE, UNCOMPLICATED Status: Acute Priority: High (2) Atypical chest pain SNOMED Code(s): 067303740 Code(s): R07.89 - OTHER CHEST PAIN Status: Acute Priority: Medium - Problem List Review Problem List Initiated/Reviewed/Updated: Yes - My Orders Last 24 Hours: My Active Orders 01/27/19 Chest 2V [CR] Routine - Assessment/Plan Last 24 Hours: My Active Orders 01/27/19 Chest 2V [CR] Routine
[2019-01-27 13:54] LABS: CHLORIDE,CL 103 mEq/L (98-106); SODIUM,NA 140 mEq/L (136-145)
[2019-01-27 14:30] VITALS: BP 173/110
== END 2019-01-27 14:44 | disposition home or self-care (01) ==
LOC: CC.ED 13:10
DX: R07.89 Other chest pain (principal); F15.20 Other stimulant dependence, uncomplicated; I10 Essential (primary) hypertension; K21.9 Gastro-esophageal reflux disease without esophagitis; F41.9 Anxiety disorder, unspecified; F32.9 Major depressive disorder, single episode, unspecified; Z79.899 Other long term (current) drug therapy; Z88.6 Allergy status to analgesic agent
CPT/HCPCS: 36415; 71046; 80048; 80305-QW; 81001; 82550; 83615; 84484; 85025; 85379; 85610; 93005; 99285-25

== ENCOUNTER 2019-04-16 13:11 | Observation (INO) | payer MEDICARE, MEDICAID ==
[~2019-04-16 13:11] MED LIST: Naloxone 2 MG/2 ML Syringe ONE; Sodium Chloride 0.9% 1,000 ML ONE
[2019-04-16] MEDS ORDERED: Naloxone 2 MG/2 ML Syringe IM ONE (13:31)
[2019-04-16] MEDS ORDERED: Sodium Chloride 0.9% 1,000 ML IV SCH (13:31)
[2019-04-16 14:33] LABS: CHLORIDE,CL 101 mEq/L (98-106); SODIUM,NA 140 mEq/L (136-145)
[2019-04-16] MEDS ORDERED: Piperacillin/Tazobactam 4.5 GM in Sodium Chloride 0.9% 100 ML IV STA (14:40)
[2019-04-16] MEDS ORDERED: Potassium Chloride 10 MEQ Tab.ER PO ONE (15:30)
--- NOTE | 2019-04-16 15:38 | EDM.PDOC ---
ED HPI GENERAL MEDICAL PROBLEM - General Chief Complaint: General Stated Complaint: unresponsive Time Seen by Provider: 04/16/19 13:11 Source of Information: Reports: EMS History Limitations: Reports: Altered Mental Status - History of Present Illness INITIAL COMMENTS - FREE TEXT/NARRATIVE: This patient is a 33 year old female that presents to the ER. Patient arrives via EMS [place]. They report when they got to the house the patient was laying on the couch. They report the patient was not responding to them. They report in route, the patient did open her eyes. The patient arrives to the ER. EMS reports also the patient has history of meth use. The patient is following me with her eyes, and does squeeze my hands when asked to do so. When I ask her name, she mumbles sound not easily heard. The patient otherwise is nonverbal. The patient for about 45 minutes is nonverbal, but eye follows, and and senses painful stimuli. The patient after about 45 minutes of being here, is now eye opening, eye following, verbal, more alert. She is oriented to person, place, and time. The patient reports the last thing she remembers is "using" a few days ago. She is nonverbal when I ask what she uses, and when asked what day it is, and last day she remembers using. The patient also arrived incontinent of urine and stool. Onset: Unknown/Unsure Severity: Moderate Improves with: Reports: None Worsens with: Reports: None - Related Data Allergies Allergy/AdvReac Type Severity Reaction Status Date / Time ketorolac tromethamine Allergy Rash Verified 04/16/19 14:12 [From Toradol] Home Meds: Home Meds Gabapentin 1,200 mg PO TID 11/04/15 [History] Venlafaxine [Effexor] 225 mg PO DAILY 11/04/15 [History] HYDROcodone/Ibuprofen [Hydrocodone-Ibuprofen 7.5-200] 2 tab PO QID PRN 07/20/18 [History] Potassium Chloride 10 meq PO DAILY 10/20/18 [History] Pregabalin [Lyrica] 1 tab PO DAILY 01/27/19 [History] Past Medical History HEENT History: Reports: Impaired Vision Cardiovascular History: Reports: Hypertension Gastrointestinal History: Reports: GERD, Hepatitis Genitourinary History: Reports: Pyelonephritis ENGINE DESIGNER History: Reports: , Other (See Below) Other ENGINE DESIGNER History: reports tubes are tied Musculoskeletal History: Reports: Arthritis, Back Pain, Chronic, Fracture, Fibromyalgia Neurological History: Reports: Migraines Psychiatric History: Reports: Anxiety, Depression Other Psychiatric History: Hx of meth use. Endocrine/Metabolic History: Reports: Diabetes, Gestational - Infectious Disease History Infectious Disease History: Reports: Hepatitis C - Past Surgical History HEENT Surgical History: Reports: None Cardiovascular Surgical History: Reports: None GI Surgical History: Reports: Cholecystectomy Female Surgical History: Reports: None Endocrine Surgical History: Reports: None Neurological Surgical History: Reports: Spinal Fusion Musculoskeletal Surgical History: Reports: None Dermatological Surgical History: Reports: None Social & Family History - Family History Family Medical History: Noncontributory - Tobacco Use Smoking Status *Q: Current Every Day Smoker Years of Tobacco use: 10 Packs/Tins Daily: 1 - Caffeine Use Caffeine Use: Reports: Soda - Recreational Drug Use Recreational Drug Use: Yes ED ROS GENERAL - Review of Systems Review Of Systems: Unable To Obtain (initially. Then, once patient became more alert was able to finally obtain after about 1 hour since arrival.) Constitutional: Reports: No Symptoms HEENT: Reports: No Symptoms Respiratory: Reports: No Symptoms Cardiovascular: Reports: No Symptoms Endocrine: Reports: No Symptoms GI/Abdominal: Reports: No Symptoms : Reports: No Symptoms Musculoskeletal: Reports: No Symptoms Skin: Reports: No Symptoms Neurological: Reports: No Symptoms Psychiatric: Denies: Homicidal Ideation, Suicidal Ideation Hematologic/Lymphatic: Reports: No Symptoms Immunologic: Reports: No Symptoms ED EXAM, GENERAL - Physical Exam Exam: See Below Exam Limited By: Altered Mental Status General Appearance: WD/WN Eye Exam: Bilateral Eye: Normal Inspection, PERRL Ears: Normal External Exam, Normal Canal, Hearing Grossly Normal, Normal TMs Ear Exam: Bilateral Ear: Auricle Normal, Canal Normal, TM normal Nose: Normal Inspection, Normal Mucosa, No Blood Throat/Mouth: Normal Inspection, Normal Lips, Normal Teeth, Normal Gums, Normal Oropharynx, Normal Voice, No Airway Compromise Head: Atraumatic, Normocephalic Neck: Normal Inspection, Supple, Non-Tender, Full Range of Motion Respiratory/Chest: No Respiratory Distress, Lungs Clear, Normal Breath Sounds, No Accessory Muscle Use, Chest Non-Tender Cardiovascular: Normal Peripheral Pulses, Regular Rate, Rhythm, No Edema, No Gallop, No JVD, No Murmur, No Rub Peripheral Pulses: 2+: Radial (L), Radial (R), Posterior Tibial (L), Posterior Tibial (R), Dorsalis Pedis (L), Dorsalis Pedis (R) GI/Abdominal: Normal Bowel Sounds, Soft, Non-Tender, No Organomegaly, No Distention, No Abnormal Bruit, No Mass, Pelvis Stable Back Exam: Normal Inspection, Full Range of Motion Extremities: Normal Inspection, Normal Range of Motion, Non-Tender, No Pedal Edema, Normal Capillary Refill Neurological: Other (GCS 12. Opens eyes spontaneous, obeys my verbal commands with hand squeezing. No unilateral weaknesses. ) Skin Exam: Warm, Dry, Intact, Normal Color, No Rash Lymphatic: No Adenopathy Course - Vital Signs Last Recorded V/S: Last Vital Signs Temp 97.4 F 04/16/19 16:06 Pulse 74 04/16/19 16:06 Resp 20 04/16/19 16:06 BP 152/77 H 04/16/19 16:06 Pulse Ox 100 04/16/19 16:06 - Orders/Labs/Meds Orders: Active Orders 24 hr Category Date Time Status Chest 1V Frontal [CR] Stat Exams 04/16/19 13:03 Taken Head wo Cont [CT] Stat Exams 04/16/19 13:21 Taken CULTURE URINE [RM] Stat Lab 04/16/19 14:47 Received Sodium Chloride 0.9% [Normal Saline] 1,000 ml Med 04/16/19 13:31 Active IV ASDIRECTED Medication Orders Sodium Chloride (Normal Saline) 1,000 mls @ 125 mls/hr IV ASDIRECTED PRABHAKAR Last Admin: 04/16/19 13:35 Dose: 125 mls/hr Labs: Laboratory Tests 04/16/19 04/16/19 04/16/19 Range/Units 14:00 14:00 14:00 WBC (5.0-10.0) 10^3/uL RBC (4.00-5.50) 10^6/uL Hgb (12.0-16.0) g/dL Hct (37.0-47.0) % MCV (82.0-94.0) fL MCH (27.0-32.0) pg MCHC (33.0-38.0) g/dL RDW Coeff of Dian (11.0-15.0) % Plt Count (150-400) 10^3/uL Neut % (Auto) (35-85) % Lymph % (Auto) (10-55) % Crosby % (Auto) (0-16) % Eos % (Auto) (0-5) % Baso % (Auto) (0-3) % Neut # (Auto) (1.80-7.00) 10^3/uL Lymph # (Auto) (1.00-4.80) 10^3/uL Crosby # (Auto) (0.00-0.80) 10^3/uL Eos # (Auto) (0.00-0.45) 10^3/uL Baso # (Auto) 10^3/uL Sodium 140 (136-145) mEq/L Potassium 3.2 L (3.5-5.0) mEq/L Chloride 101 (98-106) mEq/L Carbon Dioxide 24 (21-32) mmol/L BUN 8 (7-18) mg/dL Creatinine 0.7 (0.6-1.0) mg/dL Est Cr Clr Drug Dosing 114.23 mL/min Estimated GFR (MDRD) > 60 (>=60) mL/min Glucose 103 H (75-99) mg/dL Lactic Acid 1.6 (0.4-2.0) mmol/L Calcium 10.1 (8.4-10.1) mg/dL Total Bilirubin 1.1 H (0.0-1.0) mg/dL AST 39 H (15-37) U/L ALT 66 (12-78) U/L Alkaline Phosphatase 81 (46-116) U/L Lactate Dehydrogenase 196 H (100-190) U/L Creatine Kinase 126 (21-215) U/L Troponin I < 0.017 (0.00-0.06) ng/mL Total Protein 8.6 H (6.4-8.2) g/dL Albumin 4.1 (3.4-5.0) g/dL HCG, Qual Negative Urine Color (YELLOW) Urine Appearance (CLEAR) Urine pH (4.5-8.0) Ur Specific Reedy (1.003-1.020) Urine Protein (NEGATIVE) mg/dL Urine Glucose (UA) (NEGATIVE) mg/dL Urine Ketones (NEGATIVE) mg/dL Urine Occult Blood (NEGATIVE) Urine Nitrite (NEGATIVE) Urine Bilirubin (NEGATIVE) Urine Urobilinogen (0.2-1.0) EU/dL Ur Leukocyte Esterase (NEGATIVE) Urine RBC (0-5) /HPF Urine WBC (0-5) /HPF Ur Squamous Epith Cells (NOT SEEN) /HPF Urine Bacteria (NOT SEEN) /HPF Urine Mucus (NOT SEEN) /HPF Urinalysis Comment Urine Opiates Screen (NEGATIVE) Ur Oxycodone Screen (NEGATIVE) Urine Methadone Screen (NEGATIVE) Ur Barbiturates Screen (NEGATIVE) U Tricyclic Antidepress (NEGATIVE) Ur Phencyclidine Scrn (NEGATIVE) Ur Amphetamine Screen (NEGATIVE) U Methamphetamines Scrn (NEGATIVE) Urine MDMA Screen (NEGATIVE) U Benzodiazepines Scrn (NEGATIVE) Urine Cocaine Screen (NEGATIVE) U Marijuana (THC) Screen (NEGATIVE) Ethyl Alcohol < 3 (0-3) mg/dL 04/16/19 04/16/19 04/16/19 Range/Units 14:15 14:47 14:47 WBC 9.4 (5.0-10.0) 10^3/uL RBC 4.93 (4.00-5.50) 10^6/uL Hgb 14.2 (12.0-16.0) g/dL Hct 41.7 (37.0-47.0) % MCV 84.6 (82.0-94.0) fL MCH 28.8 (27.0-32.0) pg MCHC 34.1 (33.0-38.0) g/dL RDW Coeff of Dian 14.0 (11.0-15.0) % Plt Count 355 (150-400) 10^3/uL Neut % (Auto) 73.4 (35-85) % Lymph % (Auto) 21.5 (10-55) % Crosby % (Auto) 4.2 (0-16) % Eos % (Auto) 0.7 (0-5) % Baso % (Auto) 0.2 (0-3) % Neut # (Auto) 6.90 (1.80-7.00) 10^3/uL Lymph # (Auto) 2.03 (1.00-4.80) 10^3/uL Crosby # (Auto) 0.40 (0.00-0.80) 10^3/uL Eos # (Auto) 0.07 (0.00-0.45) 10^3/uL Baso # (Auto) 0.02 10^3/uL Sodium (136-145) mEq/L Potassium (3.5-5.0) mEq/L Chloride (98-106) mEq/L Carbon Dioxide (21-32) mmol/L BUN (7-18) mg/dL Creatinine (0.6-1.0) mg/dL Est Cr Clr Drug Dosing mL/min Estimated GFR (MDRD) (>=60) mL/min Glucose (75-99) mg/dL Lactic Acid (0.4-2.0) mmol/L Calcium (8.4-10.1) mg/dL Total Bilirubin (0.0-1.0) mg/dL AST (15-37) U/L ALT (12-78) U/L Alkaline Phosphatase (46-116) U/L Lactate Dehydrogenase (100-190) U/L Creatine Kinase (21-215) U/L Troponin I (0.00-0.06) ng/mL Total Protein (6.4-8.2) g/dL Albumin (3.4-5.0) g/dL HCG, Qual Urine Color Dark yellow (YELLOW) Urine Appearance Slightly cloudy (CLEAR) Urine pH 6.5 (4.5-8.0) Ur Specific Reedy 1.015 (1.003-1.020) Urine Protein Trace H (NEGATIVE) mg/dL Urine Glucose (UA) Negative (NEGATIVE) mg/dL Urine Ketones Negative (NEGATIVE) mg/dL Urine Occult Blood Negative (NEGATIVE) Urine Nitrite Negative (NEGATIVE) Urine Bilirubin Negative (NEGATIVE) Urine Urobilinogen 0.2 (0.2-1.0) EU/dL Ur Leukocyte Esterase Small H (NEGATIVE) Urine RBC Not seen (0-5) /HPF Urine WBC 5-10 H (0-5) /HPF Ur Squamous Epith Cells Few H (NOT SEEN) /HPF Urine Bacteria Few H (NOT SEEN) /HPF Urine Mucus Few H (NOT SEEN) /HPF Urinalysis Comment Urine Opiates Screen Negative (NEGATIVE) Ur Oxycodone Screen Negative (NEGATIVE) Urine Methadone Screen Negative (NEGATIVE) Ur Barbiturates Screen Negative (NEGATIVE) U Tricyclic Antidepress Negative (NEGATIVE) Ur Phencyclidine Scrn Negative (NEGATIVE) Ur Amphetamine Screen Positive H (NEGATIVE) U Methamphetamines Scrn Positive H (NEGATIVE) Urine MDMA Screen Negative (NEGATIVE) U Benzodiazepines Scrn Positive H (NEGATIVE) Urine Cocaine Screen Negative (NEGATIVE) U Marijuana (THC) Screen Negative (NEGATIVE) Ethyl Alcohol (0-3) mg/dL Meds: Medications Generic Name Dose Route Start Last Admin Trade Name Freq PRN Reason Stop Dose Admin Sodium Chloride 1,000 mls @ 125 mls/hr 04/16/19 13:31 04/16/19 13:35 Normal Saline IV 125 mls/hr ASDIRECTED PRABHAKAR Administration Discontinued Medications Generic Name Dose Route Start Last Admin Trade Name Freq PRN Reason Stop Dose Admin Sodium Chloride Confirm 04/16/19 13:03 04/16/19 14:03 Normal Saline Administered 04/16/19 13:04 Not Given Dose 1,000 mls @ as directed .ROUTE .STK-MED ONE Piperacillin Sod/Tazobactam 100 mls @ 200 mls/hr 04/16/19 14:40 Sod 4.5 gm/ Sodium Chloride IV 04/16/19 15:09 NOW STA Naloxone HCl Confirm 04/16/19 12:50 04/16/19 14:01 Narcan Administered 04/16/19 12:51 Not Given Dose 2 mg .ROUTE .STK-MED ONE Naloxone HCl 2 mg 04/16/19 13:31 04/16/19 13:31 Narcan IM 04/16/19 13:32 2 mg ONETIME ONE Administration Potassium Chloride 40 meq 04/16/19 15:30 04/16/19 15:38 Klor-Con 10 PO 04/16/19 15:31 40 meq ONETIME ONE Administration Vancomycin HCl 1 dose 04/16/19 14:39 Pharmacy To Dose - Vancomycin .XX 04/16/19 14:40 ONETIME ONE - Re-Assessments/Exams Free Text/Narrative Re-Assessment/Exam: 04/16/19 15:42 Discussed patient with Magdalene of post ictal verses overdose. The patient did not respond to dose of Narcan in ER upon arrival. It took more than 45 minutes for patient to become alert, oriented, verbal. Dr. Villarreal from [facility] reports this is overdose. he reports to admit the patent obs, she will become more alert and can discharge tomorrow. Will admit. Departure - Departure Time of Disposition: 15:44 Disposition: Refer to Observation Condition: Fair Clinical Impression: Methamphetamine dependence, episodic, Hypokalemia Drug overdose Qualifiers: Encounter type: initial encounter Injury intent: undetermined intent Qualified Code(s): T50.904A - Poisoning by unspecified drugs, medicaments and biological substances, undetermined, initial encounter - Discharge Information *PRESCRIPTION DRUG MONITORING PROGRAM REVIEWED*: No *COPY OF PRESCRIPTION DRUG MONITORING REPORT IN PATIENT ANDIE: No - My Orders Last 24 Hours: My Active Orders 04/16/19 13:03 Chest 1V Frontal [CR] Stat 04/16/19 13:21 Head wo Cont [CT] Stat 04/16/19 13:31 Sodium Chloride 0.9% [Normal Saline] 1,000 ml IV ASDIRECTED 04/16/19 14:47 CULTURE URINE [RM] Stat - Assessment/Plan Last 24 Hours: My Active Orders 04/16/19 13:03 Chest 1V Frontal [CR] Stat 04/16/19 13:21 Head wo Cont [CT] Stat 04/16/19 13:31 Sodium Chloride 0.9% [Normal Saline] 1,000 ml IV ASDIRECTED 04/16/19 14:47 CULTURE URINE [RM] Stat Plan: PLEASE SEE RN NOTE FOR PFSH. PLEASE USE ER H&P FOR ADMIT H&P
[2019-04-16] MEDS ORDERED: Ondansetron 4 MG Tab.DIS PO PRN (17:29)
[2019-04-16] MEDS ORDERED: Acetaminophen 325 MG Tab PO PRN (17:29)
[2019-04-16] MEDS: Gabapentin 300 MG Cap PO SCH (20:08)
--- NOTE | 2019-04-16 21:31 | PCM.SN ---
- Free Text/Narrative Note: I was informed this patient has three children and that its possible her left her. It was reported by EMS that there are three children at the home. I am uncertain who is at the home with the children, oldest of which is 10 years old. I called [facility] to report this, they are sending an officer to the house to welfare check and to check the situation since the mother of the children is here admitted due to drug overdose.
[2019-04-17 07:58] LABS: CHLORIDE,CL 105 mEq/L (98-106); SODIUM,NA 139 mEq/L (136-145)
[2019-04-17] MEDS ORDERED: PREGABALIN PO SCH (08:00)
[2019-04-17] MEDS ORDERED: Venlafaxine 75 MG Cap.ER PO SCH (08:00)
[2019-04-17] MEDS ORDERED: Potassium Chloride 10 MEQ Tab.ER PO SCH (08:00)
[2019-04-17] MEDS ORDERED: VENLAFAXINE 150 MG PO SCH (08:00)
[2019-04-17] MEDS: Gabapentin 300 MG Cap PO SCH (09:18)
[2019-04-17 12:13] VITALS: BP 151/69; PULSE 82
--- NOTE | 2019-04-17 13:07 | PCM.PN ---
- General Info Date of Service: 04/17/19 Functional Status: Reports: Pain Controlled, Tolerating Diet - Review of Systems General: Reports: No Symptoms HEENT: Reports: No Symptoms Pulmonary: Reports: No Symptoms Cardiovascular: Reports: No Symptoms Gastrointestinal: Reports: No Symptoms Genitourinary: Reports: No Symptoms Musculoskeletal: Reports: No Symptoms Skin: Reports: No Symptoms Neurological: Reports: No Symptoms Psychiatric: Reports: Depression. Denies: Suicidal Ideation, Homicidal Ideation - Patient Data Vitals - Most Recent: Last Vital Signs Temp 98.1 F 04/17/19 12:00 Pulse 82 04/17/19 12:00 Resp 18 04/17/19 12:00 BP 151/69 H 04/17/19 12:00 Pulse Ox 98 04/17/19 12:00 Weight - Most Recent: 220 lb I&O - Last 24 Hours: Intake & Output 04/16/19 04/17/19 04/17/19 22:59 06:59 14:59 Intake Total 1100 Balance 1100 Lab Results Last 24 Hours: Laboratory Results - last 24 hr 04/16/19 04/16/19 04/16/19 Range/Units 14:00 14:00 14:00 WBC (5.0-10.0) 10^3/uL RBC (4.00-5.50) 10^6/uL Hgb (12.0-16.0) g/dL Hct (37.0-47.0) % MCV (82.0-94.0) fL MCH (27.0-32.0) pg MCHC (33.0-38.0) g/dL RDW Coeff of Dian (11.0-15.0) % Plt Count (150-400) 10^3/uL Neut % (Auto) (35-85) % Lymph % (Auto) (10-55) % Mckean % (Auto) (0-16) % Eos % (Auto) (0-5) % Baso % (Auto) (0-3) % Neut # (Auto) (1.80-7.00) 10^3/uL Lymph # (Auto) (1.00-4.80) 10^3/uL Mckean # (Auto) (0.00-0.80) 10^3/uL Eos # (Auto) (0.00-0.45) 10^3/uL Baso # (Auto) 10^3/uL Sodium 140 (136-145) mEq/L Potassium 3.2 L (3.5-5.0) mEq/L Chloride 101 (98-106) mEq/L Carbon Dioxide 24 (21-32) mmol/L BUN 8 (7-18) mg/dL Creatinine 0.7 (0.6-1.0) mg/dL Est Cr Clr Drug Dosing 114.23 mL/min Estimated GFR (MDRD) > 60 (>=60) mL/min Glucose 103 H (75-99) mg/dL Lactic Acid 1.6 (0.4-2.0) mmol/L Calcium 10.1 (8.4-10.1) mg/dL Total Bilirubin 1.1 H (0.0-1.0) mg/dL AST 39 H (15-37) U/L ALT 66 (12-78) U/L Alkaline Phosphatase 81 (46-116) U/L Lactate Dehydrogenase 196 H (100-190) U/L Creatine Kinase 126 (21-215) U/L Troponin I < 0.017 (0.00-0.06) ng/mL Total Protein 8.6 H (6.4-8.2) g/dL Albumin 4.1 (3.4-5.0) g/dL HCG, Qual Negative Urine Color (YELLOW) Urine Appearance (CLEAR) Urine pH (4.5-8.0) Ur Specific [place] (1.003-1.020) Urine Protein (NEGATIVE) mg/dL Urine Glucose (UA) (NEGATIVE) mg/dL Urine Ketones (NEGATIVE) mg/dL Urine Occult Blood (NEGATIVE) Urine Nitrite (NEGATIVE) Urine Bilirubin (NEGATIVE) Urine Urobilinogen (0.2-1.0) EU/dL Ur Leukocyte Esterase (NEGATIVE) Urine RBC (0-5) /HPF Urine WBC (0-5) /HPF Ur Squamous Epith Cells (NOT SEEN) /HPF Urine Bacteria (NOT SEEN) /HPF Urine Mucus (NOT SEEN) /HPF Urinalysis Comment Urine Opiates Screen (NEGATIVE) Ur Oxycodone Screen (NEGATIVE) Urine Methadone Screen (NEGATIVE) Ur Barbiturates Screen (NEGATIVE) U Tricyclic Antidepress (NEGATIVE) Ur Phencyclidine Scrn (NEGATIVE) Ur Amphetamine Screen (NEGATIVE) U Methamphetamines Scrn (NEGATIVE) Urine MDMA Screen (NEGATIVE) U Benzodiazepines Scrn (NEGATIVE) Urine Cocaine Screen (NEGATIVE) U Marijuana (THC) Screen (NEGATIVE) Ethyl Alcohol < 3 (0-3) mg/dL 04/16/19 04/16/19 04/16/19 Range/Units 14:15 14:47 14:47 WBC 9.4 (5.0-10.0) 10^3/uL RBC 4.93 (4.00-5.50) 10^6/uL Hgb 14.2 (12.0-16.0) g/dL Hct 41.7 (37.0-47.0) % MCV 84.6 (82.0-94.0) fL MCH 28.8 (27.0-32.0) pg MCHC 34.1 (33.0-38.0) g/dL RDW Coeff of Dian 14.0 (11.0-15.0) % Plt Count 355 (150-400) 10^3/uL Neut % (Auto) 73.4 (35-85) % Lymph % (Auto) 21.5 (10-55) % Mckean % (Auto) 4.2 (0-16) % Eos % (Auto) 0.7 (0-5) % Baso % (Auto) 0.2 (0-3) % Neut # (Auto) 6.90 (1.80-7.00) 10^3/uL Lymph # (Auto) 2.03 (1.00-4.80) 10^3/uL Mckean # (Auto) 0.40 (0.00-0.80) 10^3/uL Eos # (Auto) 0.07 (0.00-0.45) 10^3/uL Baso # (Auto) 0.02 10^3/uL Sodium (136-145) mEq/L Potassium (3.5-5.0) mEq/L Chloride (98-106) mEq/L Carbon Dioxide (21-32) mmol/L BUN (7-18) mg/dL Creatinine (0.6-1.0) mg/dL Est Cr Clr Drug Dosing mL/min Estimated GFR (MDRD) (>=60) mL/min Glucose (75-99) mg/dL Lactic Acid (0.4-2.0) mmol/L Calcium (8.4-10.1) mg/dL Total Bilirubin (0.0-1.0) mg/dL AST (15-37) U/L ALT (12-78) U/L Alkaline Phosphatase (46-116) U/L Lactate Dehydrogenase (100-190) U/L Creatine Kinase (21-215) U/L Troponin I (0.00-0.06) ng/mL Total Protein (6.4-8.2) g/dL Albumin (3.4-5.0) g/dL HCG, Qual Urine Color Dark yellow (YELLOW) Urine Appearance Slightly cloudy (CLEAR) Urine pH 6.5 (4.5-8.0) Ur Specific [place] 1.015 (1.003-1.020) Urine Protein Trace H (NEGATIVE) mg/dL Urine Glucose (UA) Negative (NEGATIVE) mg/dL Urine Ketones Negative (NEGATIVE) mg/dL Urine Occult Blood Negative (NEGATIVE) Urine Nitrite Negative (NEGATIVE) Urine Bilirubin Negative (NEGATIVE) Urine Urobilinogen 0.2 (0.2-1.0) EU/dL Ur Leukocyte Esterase Small H (NEGATIVE) Urine RBC Not seen (0-5) /HPF Urine WBC 5-10 H (0-5) /HPF Ur Squamous Epith Cells Few H (NOT SEEN) /HPF Urine Bacteria Few H (NOT SEEN) /HPF Urine Mucus Few H (NOT SEEN) /HPF Urinalysis Comment Urine Opiates Screen Negative (NEGATIVE) Ur Oxycodone Screen Negative (NEGATIVE) Urine Methadone Screen Negative (NEGATIVE) Ur Barbiturates Screen Negative (NEGATIVE) U Tricyclic Antidepress Negative (NEGATIVE) Ur Phencyclidine Scrn Negative (NEGATIVE) Ur Amphetamine Screen Positive H (NEGATIVE) U Methamphetamines Scrn Positive H (NEGATIVE) Urine MDMA Screen Negative (NEGATIVE) U Benzodiazepines Scrn Positive H (NEGATIVE) Urine Cocaine Screen Negative (NEGATIVE) U Marijuana (THC) Screen Negative (NEGATIVE) Ethyl Alcohol (0-3) mg/dL 04/17/19 04/17/19 Range/Units 07:45 07:45 WBC 6.1 (5.0-10.0) 10^3/uL RBC 4.31 (4.00-5.50) 10^6/uL Hgb 12.5 (12.0-16.0) g/dL Hct 37.2 (37.0-47.0) % MCV 86.3 (82.0-94.0) fL MCH 29.0 (27.0-32.0) pg MCHC 33.6 (33.0-38.0) g/dL RDW Coeff of Dian 13.9 (11.0-15.0) % Plt Count 277 (150-400) 10^3/uL Neut % (Auto) 67.4 (35-85) % Lymph % (Auto) 23.8 (10-55) % Mckean % (Auto) 6.8 (0-16) % Eos % (Auto) 1.5 (0-5) % Baso % (Auto) 0.5 (0-3) % Neut # (Auto) 4.08 (1.80-7.00) 10^3/uL Lymph # (Auto) 1.44 (1.00-4.80) 10^3/uL Mckean # (Auto) 0.41 (0.00-0.80) 10^3/uL Eos # (Auto) 0.09 (0.00-0.45) 10^3/uL Baso # (Auto) 0.03 10^3/uL Sodium 139 (136-145) mEq/L Potassium 3.8 (3.5-5.0) mEq/L Chloride 105 (98-106) mEq/L Carbon Dioxide 24 (21-32) mmol/L BUN 9 (7-18) mg/dL Creatinine 0.7 (0.6-1.0) mg/dL Est Cr Clr Drug Dosing 114.23 mL/min Estimated GFR (MDRD) > 60 (>=60) mL/min Glucose 106 H (75-99) mg/dL Lactic Acid (0.4-2.0) mmol/L Calcium 9.2 (8.4-10.1) mg/dL Total Bilirubin (0.0-1.0) mg/dL AST (15-37) U/L ALT (12-78) U/L Alkaline Phosphatase (46-116) U/L Lactate Dehydrogenase (100-190) U/L Creatine Kinase (21-215) U/L Troponin I (0.00-0.06) ng/mL Total Protein (6.4-8.2) g/dL Albumin (3.4-5.0) g/dL HCG, Qual Urine Color (YELLOW) Urine Appearance (CLEAR) Urine pH (4.5-8.0) Ur Specific [place] (1.003-1.020) Urine Protein (NEGATIVE) mg/dL Urine Glucose (UA) (NEGATIVE) mg/dL Urine Ketones (NEGATIVE) mg/dL Urine Occult Blood (NEGATIVE) Urine Nitrite (NEGATIVE) Urine Bilirubin (NEGATIVE) Urine Urobilinogen (0.2-1.0) EU/dL Ur Leukocyte Esterase (NEGATIVE) Urine RBC (0-5) /HPF Urine WBC (0-5) /HPF Ur Squamous Epith Cells (NOT SEEN) /HPF Urine Bacteria (NOT SEEN) /HPF Urine Mucus (NOT SEEN) /HPF Urinalysis Comment Urine Opiates Screen (NEGATIVE) Ur Oxycodone Screen (NEGATIVE) Urine Methadone Screen (NEGATIVE) Ur Barbiturates Screen (NEGATIVE) U Tricyclic Antidepress (NEGATIVE) Ur Phencyclidine Scrn (NEGATIVE) Ur Amphetamine Screen (NEGATIVE) U Methamphetamines Scrn (NEGATIVE) Urine MDMA Screen (NEGATIVE) U Benzodiazepines Scrn (NEGATIVE) Urine Cocaine Screen (NEGATIVE) U Marijuana (THC) Screen (NEGATIVE) Ethyl Alcohol (0-3) mg/dL Med Orders - Current: Current Medications Acetaminophen (Tylenol) 650 mg PO Q4H PRN PRN Reason: Pain (Mild 1-3)/fever Gabapentin (Neurontin) 1,200 mg PO TID [facility] Last Admin: 04/17/19 09:18 Dose: 1,200 mg Venlafaxine (Effexor ) Er 150 Mg Cap Own Med 0 mg PO DAILY [facility] Last Admin: 04/17/19 09:19 Dose: 150 mg Ondansetron HCl (Zofran Odt) 8 mg PO Q6H PRN PRN Reason: nausea, able to take PO Potassium Chloride (Klor-Con 10) 10 meq PO DAILY [facility] Last Admin: 04/17/19 09:19 Dose: 10 meq Venlafaxine HCl (Effexor Xr) 75 mg PO DAILY [facility] Last Admin: 04/17/19 09:19 Dose: 75 mg Discontinued Medications Sodium Chloride (Normal Saline) Confirm Administered Dose 1,000 mls @ as directed .ROUTE .STK-MED ONE Stop: 04/16/19 13:04 Last Admin: 04/16/19 14:03 Dose: Not Given Sodium Chloride (Normal Saline) 1,000 mls @ 125 mls/hr IV ASDIRECTED [facility] Last Infusion: 04/16/19 18:35 Dose: Infused Piperacillin Sod/Tazobactam (Sod 4.5 gm/ Sodium Chloride) 100 mls @ 200 mls/hr IV NOW STA Stop: 04/16/19 15:09 Last Admin: 04/16/19 18:51 Dose: Not Given Naloxone HCl (Narcan) Confirm Administered Dose 2 mg .ROUTE .STK-MED ONE Stop: 04/16/19 12:51 Last Admin: 04/16/19 14:01 Dose: Not Given Naloxone HCl (Narcan) 2 mg IM ONETIME ONE Stop: 04/16/19 13:32 Last Admin: 04/16/19 13:31 Dose: 2 mg Non-Formulary Medication (Pregabalin [Lyrica]) 1 tab PO DAILY [facility] Potassium Chloride (Klor-Con 10) 40 meq PO ONETIME ONE Stop: 04/16/19 15:31 Last Admin: 04/16/19 15:38 Dose: 40 meq Vancomycin HCl (Pharmacy To Dose - Vancomycin) 1 dose .XX ONETIME ONE Stop: 04/16/19 14:40 - Exam General: Alert, Oriented, Cooperative Neck: Supple Lungs: Clear to Auscultation, Normal Respiratory Effort Cardiovascular: Regular Rate, Regular Rhythm GI/Abdominal Exam: Normal Bowel Sounds, Soft, Non-Tender, No Organomegaly, No Distention Back Exam: Normal Inspection Extremities: Normal Inspection, Normal Range of Motion, Non-Tender, No Pedal Edema, Normal Capillary Refill Peripheral Pulses: 2+: Posterior Tibial (L), Posterior Tibial (R) Skin: Warm, Dry, Intact Psy/Mental Status: Alert, Depressed, Other (Flat, depressed. Withdrawn. ) - Problem List Review Problem List Initiated/Reviewed/Updated: Yes - My Orders Last 24 Hours: My Active Orders 04/16/19 13:03 Chest 1V Frontal [CR] Stat 04/16/19 13:21 Head wo Cont [CT] Stat 04/16/19 17:21 Resuscitation Status Routine 04/16/19 17:29 Patient Status [ADT] Routine Ambulate [RC] .PRN Antiembolic Devices [RC] 1000,2200 May Shower [RC] .PRN Notify Provider Vital Signs [RC] .PRN Oxygen Therapy [RC] .PRN Up With Assistance [RC] .PRN Vital Signs [RC] 0000,0400,0800,1200,1600,2000 Acetaminophen [Tylenol] 650 mg PO Q4H PRN Ondansetron [Zofran ODT] 8 mg PO Q6H PRN Antiembolic Hose [OM.PC] Per Unit Routine 04/16/19 20:00 Gabapentin [Neurontin] 1,200 mg PO TID 04/16/19 Dinner Regular Diet [DIET] 04/17/19 08:00 Potassium Chloride [Klor-Con 10] 10 meq PO DAILY Venlafaxine [Effexor XR] 75 mg PO DAILY Venlafaxine [Effexor] 0 mg PO DAILY - Plan Plan:: This patient was admitted yesterday for overdose, drug use. The patient today is alert, she is oriented. She is talking with me. She reports that she does feel depressed. She reports that she would like help, in patient treatment for her depression and her drug use. She reports that she has no medical complaints. Labs today unremarkable. I then called and spoke to [place] wirer for psychGarrett Nugent the wirer, spoke to the patient. She does agree this patient needs placement. She reports to have the patient come via law enforcement for voluntary commitment to CRU in [place]. Will transfer the patient to CRU. USE DISCHARGE NOTE. The risk of transfer is mvc, suicide, self harm. The risk of staying in [place] is suicide, worsening of depression. The benefits of going to [place] [facility] is psych abilities, higher level of psych care, depression/drug specialist. The benefits of Staying in [place] is close to home.
--- NOTE | 2019-04-17 14:28 | PCM.SN ---
- Free Text/Narrative Note: 04/17/19 1400 The patient had someone coming to give her clothes before going to [place]. Law enforcement here now to get her. The patient is now crying and angry. She reports that the person was going to be bringing her children for he to see. The patient is now saying she is signing out AMA and wants to leave. I spoke to Jovanna, trust manager. She feels the patient is depressed and may be a harm to herself. I also feel this patient may be a harm to self. Therefore, patient is now 1:1 with staff to ensure patient safety. She is in hospital [facility] and has no shoe strings or shoes. Jovanna is calling [facility] for accepting physician. We will not allow the patient to leave or sign out AMA. I explained this to the patient, she has become more tearful and angry. Will await accepting at this time. 04/17/19 1445 The patient visitor showed up with her three children. I spoke to Jovanna trust manager again, she said its okay for her to see her children. The patient visited with her children, then comes out of room and says she is ready to go. She said she will now go voluntarily to [facility]. She said she is ready to get better. Patient is now being transferred via law enforcement. She is going willingly. Discharged.
== END 2019-04-17 14:57 | disposition other institution (70) ==
LOC: CC.ED 13:11 → INTOOBSV 15:47 → CC.MS 15:47 → OBSVTOIN 15:47 → UNDOADMOB 15:47 → CC.ED 15:47 → CC.MS 17:21 → UNDODISOB 04-17 14:57
PROVIDERS: ADMIT Nurse Practitioner; ATTEND Nurse Practitioner
DX: T65.91XA Toxic effect of unspecified substance, accidental (unintentional), initial encounter (principal); R40.20 Unspecified coma; F32.9 Major depressive disorder, single episode, unspecified; F41.9 Anxiety disorder, unspecified; G43.909 Migraine, unspecified, not intractable, without status migrainosus; I10 Essential (primary) hypertension; K21.9 Gastro-esophageal reflux disease without esophagitis; M19.90 Unspecified osteoarthritis, unspecified site; F17.210 Nicotine dependence, cigarettes, uncomplicated; F15.20 Other stimulant dependence, uncomplicated; E87.6 Hypokalemia; Z88.8 Allergy status to other drugs, medicaments and biological substances; Z79.899 Other long term (current) drug therapy
CPT/HCPCS: 36415; 70450; 71045; 80048; 80053; 80305-QW; 81001; 82550; 83605; 83615; 84484; 84703; 85025; 87086; 93005; 96360; 96372; 99217; 99220; 99285-25; A9270-GY; G0378; G0480; J2310; J7030